=== PATIENT | female | born 1945 | race Caucasian/White ===

== ENCOUNTER → 2016-09-20 | Day surgery (SDC) | payer MEDICARE, OTHER ==
[~2016-09-20] VITALS: Ht 156.2 cm; Wt 76.0 kg
[~2016-09-20] MED LIST: *RESP: ALBUTEROL 2.5 MG/3 ML NEB (PRN) PERIprocedural Use ONLY NEB ONE; CALC1TAB87 PO; DO NOT ADM ANY ANTICOAGULANT DRUGS XX PRN; ENAL10TA PO; EPINEPHrine HCL (1:1000) 1 MG/ML VIAL ONE; FOLI1TAB4 PO; GABA600T PO; HYDR12.56 PO; INSULIN HUMAN REGULAR 1,000 UNITS/10 ML VIAL SQ PRN; LACTATED RINGER'S 1000 ML IV SCH; LIDOCAINE HCL 2% PF SOLN 10 ML VIAL ONE; MELA1TAB18 PO; METH2.5T PO; METOPROLOL TARTRATE 25 MG TAB PO PRN; MIDAZOLAM HCL 2 MG/2 ML VIAL ONE; NULE0.12 PO; OMEP20TA PO; OXYGENTANK NAS.CANULA; PERC5TAB12 PO; PRAV40TA2 PO; PROPOFOL 200 MG/20 ML AMP IV ONE; SODIUM CHLORID 0.9% 500 ML IV SCH; SODIUM CHLORIDE 0.9% 20 ML VIAL ONE; SUCR1S PO; VERA180T35 PO; VISICAP PO; ZOLO100T PO
[2016-09-20 06:01] VITALS: BP 150/68; PULSE 55; RESP 16; TEMP 98.2; O2SAT 96
[2016-09-20 06:25] LABS: APTT (PATIENT) 25.3 SEC (24.3-30.1); INTERNATIONAL NORMALIZED RATIO 0.9 RATIO; PROTHROMBIN TIME - PATIENT 10.3 SEC (9.8-11.6)
[2016-09-20 06:34] LABS: AUTOMATED NEUTROPHIL # 5.7 TH/MM3 (1.8-7.7); BASOPHIL # 0.2 TH/MM3 (0-0.2); BASOPHIL % 2.5 % (0.0-2.0); EOSINOPHIL # 0.2 TH/MM3 (0-0.4); EOSINOPHIL % 2.5 % (0.0-4.0); HEMATOCRIT 39.2 % (35.0-46.0); HEMO FLAGS DIFF FINAL; LYMPH % 26.8 % (9.0-44.0); LYMPHOCYTE # 2.5 TH/MM3 (1.0-4.8); MEAN CELL VOLUME 88.9 FL (80.0-100.0); MEAN CORPUSCULAR HEMOGLOBIN 28.3 PG (27.0-34.0); MEAN CORPUSCULAR HGB CONC 31.9 % (32.0-36.0); MONO % 7.5 % (0.0-8.0); NEUT % 60.7 % (16.0-70.0); PLATELET COUNT 260 TH/MM3 (150-450); RED BLOOD COUNT 4.41 MIL/MM3 (4.00-5.30); WHITE BLOOD COUNT 9.4 TH/MM3 (4.0-11.0)
[2016-09-20 09:42] VITALS: BP 169/68; PULSE 63; RESP 18; TEMP 97.7; O2SAT 92
--- NOTE | 2016-09-20 09:53 | MR ---
cc: OSVALDO RILEY M.D. DATE 09/20/2016 PROCEDURE Fiberoptic bronchoscopy flexible REASON FOR BRONCHOSCOPY Left lower lobe lung mass underlying malignancy suspect. PROCEDURE NOTE Fiberoptic bronchoscopy performed via LMA. Vocal cords intact. Trachea moderately hyperemic. Meghana sharp. Right mainstem bronchus, right upper, middle and lower lobes, left main bronchus, left upper and lower lobe inspected. Thick mucoid secretion and plugging noted both sides of the tracheobronchial tree. All plugs were removed. No endobronchial mass lesion identified. Washings sent for routine TB, fungal cultures from both sides of the tracheobronchial tree. Cytologic brushings left lower lobe obtained for cytological exam. The procedure well tolerated. The patient transferred to recovery in stable condition. IMPRESSION 1. Moderate to severe tracheobronchitis. 2. Excess mucoid secretion and plugging. 3. Samples obtained as above. 4. Procedure well tolerated. 5. The patient transferred to recovery in stable condition. Osvaldo Riley MD WWW/VAL /8:26 AM /9:35 AM
--- NOTE | 2016-09-20 09:53 | MR ---
cc: JUAN MARTINEZ M.D. DATE: 09/20/2016 PROCEDURE Fiberoptic bronchoscopy flexible. REASON FOR BRONCHOSCOPY Left lower lobe lung mass, rule out underlying malignancy. DETAILS OF PROCEDURE Fiberoptic bronchoscopy was performed via LMA. Vocal cords intact. Trachea diffusely hyperemic. Meghana sharp. Right main stem bronchus, right upper, middle and lower lobe, left main bronchus, left upper and lower lobes inspected. Diffuse hyperemia with thick mucoid whitish secretion and plugging noted. All plugs were removed. No endobronchial obstruction or mass lesion was identified. Washings obtained from both sides of the tracheobronchial tree for routine, TB, fungal cultures as well as cytological exam. Cytologic brushings left lower lobe obtained for cytological exam. Procedure well-tolerated. Patient transferred to Recovery in stable condition. IMPRESSION 1. Moderate to severe tracheobronchitis. 2. Excess mucoid secretion. 3. No endobronchial obstruction or mass lesion. 4. Samples obtained as above. 5. Procedure well-tolerated. 6. Patient transferred to Recovery in stable condition. MD RICARDO Olivera/LAVINIA /8:24 AM /9:34 AM
--- NOTE | 2016-09-20 14:52 | EKG ---
Date Performed: 09/20/2016 Time Performed: 06:13:34 PTAGE: 71 years EKG: SINUS BRADYCARDIA NONSPECIFIC T-WAVE ABNORMALITY BORDERLINE ECG NO PREVIOUS TRACING DOCTOR: Hannah Love Interpretating Date/Time 09/20/2016 14:51:19
== END | disposition home or self-care (01) ==
LOC: HEND 05:05
PROVIDERS: ATTEND Internal Medicine Sleep Medicine
DX: J40 Bronchitis, not specified as acute or chronic (principal); I10 Essential (primary) hypertension; J43.1 Panlobular emphysema
CPT/HCPCS: 00520; 31623; 85025; 85610; 85730; 87015; 87070; 87102; 87116; 87205; 87206; 88112; 88305; 93005; 94664; J2250; J7120; J7613; J0171

== ENCOUNTER 2016-10-17 10:58 | Inpatient (IN) | payer MEDICARE, OTHER ==
[~2016-10-17] VITALS: Ht 156.2 cm; Wt 76.4 kg
[~2016-10-17 10:58] MED LIST changes: -*RESP: ALBUTEROL 2.5 MG/3 ML NEB (PRN) PERIprocedural Use ONLY NEB ONE; -CALC1TAB87 PO; -DO NOT ADM ANY ANTICOAGULANT DRUGS XX PRN; -EPINEPHrine HCL (1:1000) 1 MG/ML VIAL ONE; -INSULIN HUMAN REGULAR 1,000 UNITS/10 ML VIAL SQ PRN; -LACTATED RINGER'S 1000 ML IV SCH; -LIDOCAINE HCL 2% PF SOLN 10 ML VIAL ONE; -METOPROLOL TARTRATE 25 MG TAB PO PRN; -MIDAZOLAM HCL 2 MG/2 ML VIAL ONE; -OXYGENTANK NAS.CANULA; -PROPOFOL 200 MG/20 ML AMP IV ONE; -SODIUM CHLORID 0.9% 500 ML IV SCH; -SODIUM CHLORIDE 0.9% 20 ML VIAL ONE; -SUCR1S PO; -VISICAP PO
[2016-10-22] MEDS ORDERED: VISICAP PO (13:58)
[2016-10-22] MEDS ORDERED: CALC1TAB87 PO (13:58)
[2016-10-28] VITALS (7 sets, daily range): BP systolic 101–164; BP diastolic 57–75; PULSE 69–90; RESP 15–20; TEMP 97.3–98; O2SAT 95–98
[2016-10-28] MEDS ORDERED: METOPROLOL TARTRATE 25 MG TAB PO PRN (06:15)
[2016-10-28] MEDS ORDERED: LACTATED RINGER'S 1000 ML IV PRN (06:15)
[2016-10-28] MEDS ORDERED: POVIDONE IODINE 5% (ANTISEPSIS KIT) 4 APPLICATIONS EACH NARE PRN (06:15)
[2016-10-28] MEDS ORDERED: CHLORHEXIDINE GLUCONATE 2 % 1 PACK (2 CLOTHS) TOPICAL PRN (06:15)
[2016-10-28] MEDS ORDERED: SODIUM CHLORID 0.9% 500 ML IV PRN (06:15)
[2016-10-28] MEDS ORDERED: INSULIN HUMAN REGULAR 1,000 UNITS/10 ML VIAL SQ PRN (06:15)
[2016-10-28] MEDS ORDERED: fentaNYL CITRATE 250 MCG/5 ML AMP ONE (06:47)
[2016-10-28] MEDS ORDERED: BUPIVACAINE LIPOSO PF 1.3% INJ 20 ML, DEXAMETHASONE INJ 4 MG, MORPHINE INJ 10 MG in SOD... P-ARTICULR SCH (07:15)
[2016-10-28] MEDS ORDERED: ceFAZolin 2 GM PREMIX 50 ML ONE (07:34)
[2016-10-28] MEDS ORDERED: ACETAMINOPHEN 1000 MG/100 ML VIAL IV ONE (07:34)
[2016-10-28] MEDS ORDERED: DEXAMETHASONE SOD PHOS 4 MG/ML VIAL ONE (07:34)
[2016-10-28] MEDS ORDERED: FAMOTIDINE 20 MG/2 ML VIAL ONE (07:34)
[2016-10-28] MEDS ORDERED: MIDAZOLAM HCL 2 MG/2 ML VIAL ONE (07:34)
[2016-10-28] MEDS ORDERED: HEPARIN SODIUM - SQ 10,000 UNITS/ML VIAL OTHER ONE (10:36)
[2016-10-28 10:52] LABS: BLOOD GAS BASE EXCESS -1.3 mmol/L (-2-2); BLOOD GAS CARBOXYHEMOGLOBIN 1.3 % (0-4); BLOOD GAS HCO3 23 mmol/L (22-26); BLOOD GAS METHEMOGLOBIN 1.4 % (0-2); BLOOD GAS O2 HGB SATURATION 94 % (90-100); BLOOD GAS OXYGEN CONTENT 16.6 Vol % (12.0-20.0); BLOOD GAS PCO2 43 mmHg (38-42); BLOOD GAS PO2 71 mmHg (61-120); BLOOD GAS TOTAL HGB 12.6 G/DL (12.0-16.0); CRITICAL VALUE NO; DRAW SITE ART LINE; OXYGEN DEVICE VENTILATOR; STAT YES; TEMP CORR TO 98.6
[2016-10-28] MEDS ORDERED: Post-op Orders (for Pharmacy) MISC OTHER ONE (11:30)
[2016-10-28] MEDS ORDERED: ACETAMINOPHEN 325 MG TAB PO PRN (11:30)
[2016-10-28] MEDS ORDERED: MAGNESIUM HYDROXIDE SUSP 30 ML CUP PO PRN (11:30)
[2016-10-28] MEDS ORDERED: MORPHINE SULFATE 30 MG/30 ML PCA IV SCH (11:30)
[2016-10-28] MEDS ORDERED: RESP: ALBUTEROL 2.5 MG/3 ML NEB (PRN) NEB (11:30)
[2016-10-28] MEDS ORDERED: ONDANSETRON HCL 4 MG/2 ML VIAL IV PUSH PRN (11:30)
[2016-10-28] MEDS ORDERED: SODIUM CHLORIDE 0.9% FLUSH 10 ML FLUSH IV FLUSH PRN (11:30)
[2016-10-28] MEDS ORDERED: NALOXONE HCL 0.4 MG/ML AMP IV PRN (11:30)
[2016-10-28] MEDS ORDERED: PHENYLEPH/NS 1000 MCG/10 ML SYR IV ONE (12:00)
[2016-10-28] MEDS ORDERED: LACTATED RINGER'S 1000 ML INJ 4,000 ML IV ONE (12:00)
[2016-10-28] MEDS ORDERED: PROPOFOL 200 MG/20 ML AMP IV ONE (12:00)
[2016-10-28] MEDS ORDERED: ONDANSETRON HCL 4 MG/2 ML VIAL IV PUSH ONE (12:00)
[2016-10-28] MEDS ORDERED: NEOSTIGMINE 3 MG/3 ML SYR IV ONE (12:00)
[2016-10-28] MEDS ORDERED: ePHEDrine/NS 25 MG/5 ML SYR IV ONE (12:00)
[2016-10-28 13:04] LABS: HEMATOCRIT 39.4 % (35.0-46.0); MEAN CELL VOLUME 85.2 FL (80.0-100.0); MEAN CORPUSCULAR HEMOGLOBIN 27.7 PG (27.0-34.0); MEAN CORPUSCULAR HGB CONC 32.5 % (32.0-36.0); PLATELET COUNT 170 TH/MM3 (150-450); RED BLOOD COUNT 4.63 MIL/MM3 (4.00-5.30); RED CELL DISTRIBUTION WIDTH 15.8 % (11.6-17.2); REVIEW FLAG FINAL
[2016-10-28] MEDS ORDERED: LACTATED RINGER'S 1000 ML INJ 1,000 ML IV SCH (13:30)
--- NOTE | 2016-10-28 13:47 | RADRPT ---
EXAM DATE/TIME: 10/28/2016 12:35 [facility] COMPARISON: No previous studies available for comparison. INDICATIONS : Post left lobectomy. MEDICAL HISTORY : None. SURGICAL HISTORY : None. ENCOUNTER: Initial ACUITY: 1 day PAIN SCORE: Non-responsive. LOCATION: chest FINDINGS: The cardiac silhouette is enlarged in transverse diameter. There is subsegmental atelectasis in the both bases. A left chest tube is in place. There is no evidence of pneumothorax. CONCLUSION: 1. Postsurgical changes as above. 2. There is no evidence of pneumothorax. Alphonso Deluna MD on October 28, 2016 at 13:41 Board Certified Radiologist. This report was verified electronically.
[2016-10-28] MEDS: KETOROLAC TROMETHAMINE 30 MG/ML (IVP) VIAL IV PUSH SCH ×2 (14:27→20:28)
[2016-10-28] MEDS: ACETAMINOPHEN 1000 MG/100 ML VIAL IV SCH ×2 (14:27→20:29)
--- NOTE | 2016-10-28 16:43 | PD.OP ---
cc: Radha Brown MD; Osvaldo Riley MD Operative Report Date of Surgery: Oct 28, 2016 Preoperative Diagnosis: Postoperative Diagnosis: Procedure: 1. Attempted Robotic Left Lower Lobectomy 2. Conversion to Left Muscle-sparing Posterolateral Thoracotomy 3. Repair of Pulmonary Artery 4. Mediastinal Lymph Node Dissection. 5. Intercostal Nerve Block . Surgeon: Radha Brown Patrol Sergeant(s): Jah Andrade Operation and Findings: PREOPERATIVE DIAGNOSIS 1. Left Lower Lobe Mass 2. COPD POSTOPERATIVE DIAGNOSIS same PROCEDURES 1. Attempted Robotic Left Lower Lobectomy 2. Conversion to Left Muscle-sparing Posterolateral Thoracotomy 3. Repair of Pulmonary Artery 4. Mediastinal Lymph Node Dissection. 5. Intercostal Nerve Block SURGEON Radha Brown MD PROGRAM DIRECTOR/TRAFFIC DIRECTOR YOUSUF Jewell ANESTHESIA General endotracheal. DIABETES PHYSICIAN TEOFILO Swanson MD OPERATIVE TIME Please see record. COMPLICATIONS None. INDICATION FOR PROCEDURE The patient is a 71 yo with left lower lobe mass suspicious for lung cancer. DESCRIPTION OF PROCEDURE The patient was brought to the operating suite and placed in supine position. Following satisfactory induction of general endotracheal anesthesia, the patient was placed in the right lateral decubitus position. The left chest was then prepped and draped in the usual sterile fashion. Under direct vision, camera was introduced in the 8th ICS and insufflation was begun into the chest . Instrument arm 1, 2, and 3 were placed. Lesion was identified. The inferior pulmonary ligament was divided. The pulmonary arterial supply to the lower lobe was identified, and dissected free as was the pulmonary venous supply. In the process of dissecting a station 11 lymph node off of the anterior surface of the basilar trunk of the lower lobe, the pulmonary artery was noted to be bleeding. Robotic attempts were unsuccessful in gaining adequate control of the vessel. The anterior arm was used to tamponade the bleeding and the robot was undocked. A muscle-sparing posterolateral thoracotomy was performed and the bleeding site gained control of with a vascular clamp. It was then repaired using a pledgeted 4-0 Prolene stitch. The lower lobe branches of the LPA were then divided sequentially as was the inferior pulmonary vein. The bronchus was then dissected free, clamped and the remaining lung was insufflated without any difficulty. he specimen was removed and sent for histological analysis. 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 Lymph node dissections of level 7, 9, 10 and 11 were performed along with the course of this removal. Some of these were retained with the specimen. A 28- [place]ar[place] chest tube was placed. Intercostal nerve block was performed at the level of the incision and 3 rib spaces above and below using Exparel with Decadron solution. Evicel was sprayed along the staple line and no air-leaks were identified. The pericostal space was approximated with interrupted #1 Vicryl sutures in a pericostal fashion. The serratus fascia and Latissimus dorsi were closed with running 0-Vicryl and the remaining wounds closed with 3-0 , and 4-0 Monocryl. The patient tolerated the procedure well and postoperatively went to recovery in stable condition. Radha Brown MD Oct 28, 2016 16:43
[2016-10-28] MEDS: RESP: ALBUTEROL 2.5 MG/3 ML NEB (SCH) NEB ×2 (18:12→22:30)
[2016-10-28] MEDS: PANTOPRAZOLE SOD 40 MG DELAYED RELEASE TAB PO SCH (20:28)
[2016-10-28] MEDS: SODIUM CHLORIDE 0.9% FLUSH 10 ML FLUSH IV FLUSH SCH (20:29)
[2016-10-28] MEDS: PCA - TOTAL MG MORPHINE DELIVERED PER SHIFT SCH (20:29)
[2016-10-28] MEDS ORDERED: DOCUSATE CALCIUM 240 MG CAP PO SCH (21:00)
[2016-10-29] VITALS (17 sets, daily range): BP systolic 110–166; BP diastolic 64–78; PULSE 82–102; RESP 14–16; TEMP 98–98.8; O2SAT 92–97
[2016-10-29] MEDS: KETOROLAC TROMETHAMINE 30 MG/ML (IVP) VIAL IV PUSH SCH ×2 (02:46→08:30)
[2016-10-29] MEDS: ACETAMINOPHEN 1000 MG/100 ML VIAL IV SCH ×2 (02:46→08:49)
[2016-10-29] MEDS: RESP: ALBUTEROL 2.5 MG/3 ML NEB (SCH) NEB ×2 (04:35→09:14)
[2016-10-29] MEDS: PCA - TOTAL MG MORPHINE DELIVERED PER SHIFT SCH (06:00)
[2016-10-29 06:19] LABS: AUTOMATED NEUTROPHIL # 16.7 TH/MM3 (1.8-7.7); BASOPHIL % 0.2 % (0.0-2.0); HEMATOCRIT 35.6 % (35.0-46.0); HEMO FLAGS DIFF FINAL; LYMPH % 6.6 % (9.0-44.0); LYMPHOCYTE # 1.3 TH/MM3 (1.0-4.8); MEAN CELL VOLUME 85.7 FL (80.0-100.0); MEAN CORPUSCULAR HEMOGLOBIN 28.3 PG (27.0-34.0); MONO % 7.7 % (0.0-8.0); NEUT % 85.5 % (16.0-70.0); PLATELET COUNT 170 TH/MM3 (150-450); RED BLOOD COUNT 4.15 MIL/MM3 (4.00-5.30); RED CELL DISTRIBUTION WIDTH 16.6 % (11.6-17.2); WHITE BLOOD COUNT 19.5 TH/MM3 (4.0-11.0)
--- NOTE | 2016-10-29 06:21 | RADRPT ---
EXAM DATE/TIME: 10/29/2016 05:27 [facility] COMPARISON: CHEST SINGLE AP, October 28, 2016, 12:35. INDICATIONS : Short of breath. MEDICAL HISTORY : None. SURGICAL HISTORY : left lobectomy. ENCOUNTER: Subsequent ACUITY: 2 days PAIN SCORE: Non-responsive. LOCATION: Bilateral chest FINDINGS: A single view of the chest demonstrates the left chest tube remains in place. The previous right lowe r lung atelectasis has resolved. No pneumothorax. The lungs remain grossly clear. The heart size is s table. There are no pleural effusions.. CONCLUSION: No evidence of pneumothorax. Stable examination the chest. Abilio Carlisle MD on October 29, 2016 at 6:18 Board Certified Radiologist. This report was verified electronically.
[2016-10-29 06:25] LABS: BICARBONATE 29.2 MEQ/L (21.0-32.0); POTASSIUM 4.2 MEQ/L (3.5-5.1)
[2016-10-29] MEDS: SODIUM CHLORIDE 0.9% FLUSH 10 ML FLUSH IV FLUSH SCH ×2 (09:00→21:00)
[2016-10-29] MEDS ORDERED: BISACODYL 10 MG SUPP RECTAL PRN (09:15)
[2016-10-29] MEDS ORDERED: GLUCAGON 1 MG/ML VIAL OTHER PRN (09:15)
[2016-10-29] MEDS ORDERED: SOD PHOSPHATE/SOD BIPHOSPHATE (ADULT) ENEMA 133ML RECTAL PRN (09:15)
[2016-10-29] MEDS ORDERED: DEXTROSE 50% IN WATER 50 ML VIAL(D50) IV PRN (09:15)
[2016-10-29] MEDS ORDERED: DOCUSATE SODIUM 100 MG CAP PO SCH (09:15)
[2016-10-29] MEDS: RESP: ALBUTEROL 2.5 MG/IPRATROPIUM 0.5 MG NEB (SCH) NEB ×2 (14:15→19:50)
[2016-10-29] MEDS: PRAVASTATIN SOD 40 MG TAB PO SCH (15:40)
[2016-10-29] MEDS: ACETAMINOPHEN/HYDROcodone 325 MG/5 MG TAB PO PRN ×3 (15:40→23:50)
--- NOTE | 2016-10-29 15:45 | PD.CAR.PN ---
CVT Progress Note CVT: POD #: 1 Subjective/Hospital Course: 71/ female hx of left lower lobe mass/ squamous cell ca PMH: depression, anxiety CVA minimal residual weakness surgery: .10/28 Attempted Robotic Left Lower Lobectomy, Conversion to Left Muscle-sparing Posterolateral Thoracotomy, Repair of Pulmonary Artery , Mediastinal Lymph Node Dissection. 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 HEAD: Normocephalic. EYES: No scleral icterus. No injection or drainage. NECK: Supple, trachea midline. No JVD or lymphadenopathy. CARDIOVASCULAR: Regular rate and rhythm without murmurs, gallops, or rubs. RESPIRATORY: Breath sounds equal bilaterally. No accessory muscle use. chest tube in place, incision intact and well approximate left chest GASTROINTESTINAL: Abdomen soft, non-tender, nondistended. MUSCULOSKELETAL: No cyanosis, or edema. BACK: Nontender without obvious deformity. No CVA tenderness. Vital Signs Date Time Temp Pulse Resp B/P Pulse Ox O2 Delivery O2 Flow Rate FiO2 10/29/16 14:11 93 10/29/16 13:00 98 10/29/16 11:00 98.5 91 14 137/70 95 10/29/16 11:00 95 Nasal Cannula 2.00 10/29/16 11:00 91 10/29/16 09:18 85 16 134/72 94 10/29/16 08:53 95 Nasal Cannula 2.00 10/29/16 07:00 98.4 82 16 135/70 95 10/29/16 07:00 95 Nasal Cannula 3.00 10/29/16 07:00 82 10/29/16 06:00 16 10/29/16 03:19 86 10/29/16 03:19 98.8 85 16 111/64 97 Arterial Line 10/29/16 03:19 97 Nasal Cannula 3.00 10/28/16 23:19 97.9 88 15 122/57 97 10/28/16 23:19 86 10/28/16 23:00 97 Nasal Cannula 3.00 10/28/16 22:31 98 Nasal Cannula 3.00 10/28/16 20:29 15 4/24/17 19:08 97.7 87 16 101/60 97 116/60 10/28/16 19:00 96 Nasal Cannula 3.00 10/28/16 19:00 87 10/28/16 18:04 97 Nasal Cannula 3.00 10/28/16 16:40 97.3 90 18 108/71 95 125/60 10/28/16 16:40 90 10/28/16 16:25 97.6 82 16 109/59 97 Nasal Cannula 3 111/52 10/28/16 16:00 84 16 107/58 97 Nasal Cannula 3 107/50 Labs: Laboratory Tests Test 10/29/16 05:43 White Blood Count 19.5 TH/MM3 (4.0-11.0) Red Blood Count 4.15 MIL/MM3 (4.00-5.30) Hemoglobin 11.7 GM/DL (11.6-15.3) Hematocrit 35.6 % (35.0-46.0) Mean Corpuscular Volume 85.7 FL (80.0-100.0) Mean Corpuscular Hemoglobin 28.3 PG (27.0-34.0) Mean Corpuscular Hemoglobin 33.0 % Concent (32.0-36.0) Red Cell Distribution Width 16.6 % (11.6-17.2) Platelet Count 170 TH/MM3 (150-450) Mean Platelet Volume 7.9 FL (7.0-11.0) Neutrophils (%) (Auto) 85.5 % (16.0-70.0) Lymphocytes (%) (Auto) 6.6 % (9.0-44.0) Monocytes (%) (Auto) 7.7 % (0.0-8.0) Eosinophils (%) (Auto) 0.0 % (0.0-4.0) Basophils (%) (Auto) 0.2 % (0.0-2.0) Neutrophils # (Auto) 16.7 TH/MM3 (1.8-7.7) Lymphocytes # (Auto) 1.3 TH/MM3 (1.0-4.8) Monocytes # (Auto) 1.5 TH/MM3 (0-0.9) Eosinophils # (Auto) 0.0 TH/MM3 (0-0.4) Basophils # (Auto) 0.0 TH/MM3 (0-0.2) CBC Comment DIFF FINAL Differential Comment Sodium Level 142 MEQ/L (136-145) Potassium Level 4.2 MEQ/L (3.5-5.1) Chloride Level 104 MEQ/L (98-107) Carbon Dioxide Level 29.2 MEQ/L (21.0-32.0) Anion Gap 9 MEQ/L (5-15) Blood Urea Nitrogen 22 MG/DL (7-18) Creatinine 1.25 MG/DL (0.50-1.00) Estimat Glomerular Filtration 42 ML/MIN (>89) Rate Random Glucose 138 MG/DL (74-106) Calcium Level 7.7 MG/DL (8.5-10.1) Result Diagram: 10/29/16 0543 10/29/16 0543 Telemetry: NSR (1) Lung cancer (2) left lower lobe lung mass Plan: await path (3) COPD (chronic obstructive pulmonary disease) Plan: nebs (4) Rheumatoid arthritis Plan: hold methotrexate dose today (5) S/P thoracotomy Plan: wean 02, nebsadriana acpaella OOB, PT CM eval for [facility] pain control Elzbieta Butt Oct 29, 2016 15:45
--- NOTE | 2016-10-29 15:47 | HHI.FF ---
Face to Face Verification Diagnosis: (1) Lung cancer (2) left lower lobe lung mass (3) S/P thoracotomy (4) COPD (chronic obstructive pulmonary disease) Home Health Nursing Order: Signs/symptoms of disease process Wound care and dressing changes Nursing assessment with vital signs Instructions: Incentive spirometry Q1 hr x 10, while awake, also use acapella device hourly whole awake chest wall Precautions: NO pushing or pulling, ( pt must use chest pillow to support chest with all activities and with coughing Daily incision care: ok to shower daily, no tub bath. Wash all incisions with liquid dial soap, clean wash cloth to each site, rinse and pat dry. Observe for any signs of infection, such as drainage which is dark yellow, rutherford, green or foul smelling. Immediately report to the surgeon any drainage from the chest incision, or legs, and for any abnormal drainage from the chest tube sites. Notify surgeon if any temp >101.5 degrees F. When specialty dressing removed/ or if you do not have one, continue to shower daily as above, then rinse and pat incision dry and paint with betadine daily x 5 days. Allow steri strips to fall off if you have any. Avoid lotions, creams, salves, oils, etc. for the first month F/U appointment: as per [facility] instructions: PCP in 2 weeks, CV surgeon 2 weeks, Slot Floor Supervisor 3-4 weeks For any questions regarding incisions/ dressing / meds / post op care or above Symptoms, Friday 8am-5pm Heart & Vascular Surgery Office ( Dr. Brown & Dr. Astorga), After Hours / Nights (5pm -8am) Weekends and Holidays Please call [facility] Card[facility] Unit ([facility]) Charge Nurse I have seen patient Sherley Neil on 10/29/16. My clinical findings support the need for the requested home health care services because: Patient has SOB Deconditioned w/ increased weakness I certify that my clinical findings support that this patient is homebound because: Post-op weakness Elzbieta Butt Oct 29, 2016 15:47
[2016-10-29] MEDS: GABAPENTIN 300 MG CAP PO SCH (20:11)
[2016-10-29] MEDS: DOCUSATE SODIUM 100 MG CAP PO SCH (20:11)
[2016-10-29] MEDS: PANTOPRAZOLE SOD 40 MG DELAYED RELEASE TAB PO SCH (20:11)
[2016-10-29] MEDS ORDERED: GABAPENTIN 300 MG CAP PO SCH (21:00)
[2016-10-29] MEDS: SENNOSIDES 8.6 MG TAB PO SCH (21:00)
[2016-10-30] VITALS (28 sets, daily range): BP systolic 141–181; BP diastolic 63–84; PULSE 65–123; RESP 18–22; TEMP 97.3–98.5; O2SAT 88–99
[2016-10-30] MEDS ORDERED: MORPHINE SULFATE 4 MG/ML INJ IV PUSH PRN (01:30)
[2016-10-30] MEDS ORDERED: ALPRAZolam 0.25 MG TAB PO PRN (01:30)
[2016-10-30] MEDS: VERAPAMIL HCL 180 MG SUSTAINED RELEASE TAB PO SCH ×3 (01:36→20:46)
[2016-10-30] MEDS: ACETAMINOPHEN/HYDROcodone 325 MG/5 MG TAB PO PRN ×2 (03:40→06:27)
--- NOTE | 2016-10-30 03:41 | RADRPT ---
EXAM DATE/TIME: 10/30/2016 02:56 [facility] COMPARISON: CHEST SINGLE AP, October 29, 2016, 5:27. INDICATIONS : Shortness of breath. MEDICAL HISTORY : None. SURGICAL HISTORY : left lobectomy ENCOUNTER: Subsequent ACUITY: 1 day PAIN SCORE: 6/10 LOCATION: Bilateral chest FINDINGS: The left chest tube remains in place. No pneumothorax. There does appear to be some increasing atelec tasis in the left lung compared to the prior exam. The right lung remains clear. No definite pleural effusions. The heart size is stable. CONCLUSION: 1. No pneumothorax. 2. Increasing atelectasis of the left lung compared to the prior exam. Abilio Carlisle MD on October 30, 2016 at 3:39 Board Certified Radiologist. This report was verified electronically.
[2016-10-30 06:19] LABS: AUTOMATED NEUTROPHIL # 13.7 TH/MM3 (1.8-7.7); BASOPHIL # 0.1 TH/MM3 (0-0.2); BASOPHIL % 0.5 % (0.0-2.0); EOSINOPHIL # 0.1 TH/MM3 (0-0.4); EOSINOPHIL % 0.4 % (0.0-4.0); HEMATOCRIT 31.1 % (35.0-46.0); HEMO FLAGS DIFF FINAL; LYMPH % 9.9 % (9.0-44.0); LYMPHOCYTE # 1.7 TH/MM3 (1.0-4.8); MEAN CORPUSCULAR HEMOGLOBIN 29.1 PG (27.0-34.0); MEAN CORPUSCULAR HGB CONC 33.5 % (32.0-36.0); NEUT % 81.2 % (16.0-70.0); PLATELET COUNT 181 TH/MM3 (150-450); RED BLOOD COUNT 3.57 MIL/MM3 (4.00-5.30); RED CELL DISTRIBUTION WIDTH 16.2 % (11.6-17.2); WHITE BLOOD COUNT 16.8 TH/MM3 (4.0-11.0)
[2016-10-30 06:50] LABS: BICARBONATE 33.7 MEQ/L (21.0-32.0); MAGNESIUM 1.9 MG/DL (1.5-2.5); POTASSIUM 3.9 MEQ/L (3.5-5.1)
[2016-10-30] MEDS ORDERED: MELATONIN 5 MG TAB PO PRN (07:15)
[2016-10-30] MEDS: RESP: ALBUTEROL 2.5 MG/IPRATROPIUM 0.5 MG NEB (SCH) NEB ×3 (08:19→19:23)
[2016-10-30] MEDS ORDERED: POTASSIUM CHLORIDE 20 MEQ CONTROLLED RELEASE TAB PO ONE (09:00)
[2016-10-30] MEDS ORDERED: MAGNESIUM SULFATE 1 GM PREMIX 100 ML IV ONE (09:00)
[2016-10-30] MEDS ORDERED: SERTRALINE HCL 100 MG TAB PO SCH (09:00)
[2016-10-30] MEDS: POLYETHYLENE GLYCOL 17 GM PKG PO SCH (09:12)
[2016-10-30] MEDS: DOCUSATE SODIUM 100 MG CAP PO SCH ×2 (09:12→20:50)
[2016-10-30] MEDS: PRAVASTATIN SOD 40 MG TAB PO SCH (09:12)
[2016-10-30] MEDS: GABAPENTIN 300 MG CAP PO SCH ×2 (09:12→20:47)
[2016-10-30] MEDS: MAGNESIUM HYDROXIDE SUSP 30 ML CUP PO SCH (09:12)
[2016-10-30] MEDS: HYDROCHLOROTHIAZIDE 12.5 MG CAP PO SCH (09:12)
[2016-10-30] MEDS: MULTIVITAMINS/MINERALS THERAPEUTIC TAB PO SCH (09:12)
[2016-10-30] MEDS: SODIUM CHLORIDE 0.9% FLUSH 10 ML FLUSH IV FLUSH SCH ×2 (09:13→20:50)
--- NOTE | 2016-10-30 11:56 | PD.CAR.PN ---
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 anxious , on nasal cannula po pain control OOB ambulate , chest tube drained 112cc/ 12 hrs transfer to stepdown unit 10/30 chest drained 220cc/ 12 hrs, additional 100cc sero sang drainage since this am remains on 02 at 3 liters encourage ambulation, consult for pt home meds resumed for hypertension gentle diuresis Objective: Vital Signs Date Time Temp Pulse Resp B/P Pulse Ox O2 Delivery O2 Flow Rate FiO2 10/30/16 09:00 96 10/30/16 08:19 93 Nasal Cannula 4.00 10/30/16 08:00 108 10/30/16 07:00 80 10/30/16 07:00 98.0 85 18 145/68 91 10/30/16 07:00 4.00 10/30/16 06:10 82 10/30/16 06:00 85 10/30/16 05:07 85 10/30/16 04:00 93 10/30/16 03:50 98.0 93 20 169/80 97 10/30/16 03:04 94 Nasal Cannula 3.00 10/30/16 03:00 93 10/30/16 02:00 99 10/30/16 01:00 99 10/30/16 00:00 101 10/30/16 00:00 98.4 99 22 181/84 94 10/29/16 23:05 101 10/29/16 23:01 94 Nasal Cannula 3.00 10/29/16 22:00 101 10/29/16 21:00 99 10/29/16 20:16 78 Nasal Cannula 2.00 10/29/16 20:00 98 10/29/16 20:00 98.0 96 16 166/78 92 10/29/16 19:50 93 Nasal Cannula 2.00 10/29/16 19:00 96 10/29/16 18:00 98 10/29/16 17:00 102 10/29/16 16:00 90 10/29/16 15:00 98.5 94 16 110/64 97 10/29/16 15:00 97 Nasal Cannula 2.00 10/29/16 15:00 102 10/29/16 14:11 93 10/29/16 13:00 98 Labs: Laboratory Tests Test 10/30/16 05:25 White Blood Count 16.8 TH/MM3 (4.0-11.0) Red Blood Count 3.57 MIL/MM3 (4.00-5.30) Hemoglobin 10.4 GM/DL (11.6-15.3) Hematocrit 31.1 % (35.0-46.0) Mean Corpuscular Volume 87.0 FL (80.0-100.0) Mean Corpuscular Hemoglobin 29.1 PG (27.0-34.0) Mean Corpuscular Hemoglobin 33.5 % Concent (32.0-36.0) Red Cell Distribution Width 16.2 % (11.6-17.2) Platelet Count 181 TH/MM3 (150-450) Mean Platelet Volume 7.6 FL (7.0-11.0) Neutrophils (%) (Auto) 81.2 % (16.0-70.0) Lymphocytes (%) (Auto) 9.9 % (9.0-44.0) Monocytes (%) (Auto) 8.0 % (0.0-8.0) Eosinophils (%) (Auto) 0.4 % (0.0-4.0) Basophils (%) (Auto) 0.5 % (0.0-2.0) Neutrophils # (Auto) 13.7 TH/MM3 (1.8-7.7) Lymphocytes # (Auto) 1.7 TH/MM3 (1.0-4.8) Monocytes # (Auto) 1.3 TH/MM3 (0-0.9) Eosinophils # (Auto) 0.1 TH/MM3 (0-0.4) Basophils # (Auto) 0.1 TH/MM3 (0-0.2) CBC Comment DIFF FINAL Differential Comment Sodium Level 142 MEQ/L (136-145) Potassium Level 3.9 MEQ/L (3.5-5.1) Chloride Level 103 MEQ/L (98-107) Carbon Dioxide Level 33.7 MEQ/L (21.0-32.0) Anion Gap 5 MEQ/L (5-15) Blood Urea Nitrogen 19 MG/DL (7-18) Creatinine 0.69 MG/DL (0.50-1.00) Estimat Glomerular Filtration 83 ML/MIN (>89) Rate Random Glucose 100 MG/DL (74-106) Calcium Level 8.5 MG/DL (8.5-10.1) Magnesium Level 1.9 MG/DL (1.5-2.5) Result Diagram: 10/30/1652410/30/16524 Telemetry: NSR (1) Lung cancer (2) left lower lobe lung mass Plan: await path / preliminary invasive squamous cell CA/ await complete path (3) COPD (chronic obstructive pulmonary disease) Plan: nebs (4) Rheumatoid arthritis Plan: hold methotrexate dose today (5) S/P thoracotomy Plan: wean 02, nebs, ezpap , acpaella OOB, PT CM eval for [facility] pain control (6) Anxiety Plan: prn xanax (7) Hypertension Plan: resume home meds / gentle diuresis Elzbieta Butt Oct 30, 2016 11:56
[2016-10-30] MEDS ORDERED: FUROSEMIDE 40 MG/4 ML VIAL IV PUSH ONE (12:00)
[2016-10-30] MEDS ORDERED: POTASSIUM CHLORIDE 10 MEQ CONTROLLED RELEASE TAB PO ONE (12:00)
[2016-10-30] MEDS ORDERED: POTASSIUM CHLORIDE 10 MEQ CAP PO ONE (14:00)
[2016-10-30] MEDS: SENNOSIDES 8.6 MG TAB PO SCH (20:46)
[2016-10-30] MEDS: PANTOPRAZOLE SOD 40 MG DELAYED RELEASE TAB PO SCH (20:46)
[2016-10-30] MEDS: SERTRALINE HCL 50 MG TAB PO SCH (20:50)
[2016-10-31] VITALS (31 sets, daily range): BP systolic 124–156; BP diastolic 65–81; PULSE 70–112; RESP 16–18; TEMP 89–98.3; O2SAT 90–96
[2016-10-31] MEDS: ACETAMINOPHEN/HYDROcodone 325 MG/5 MG TAB PO PRN ×3 (04:13→21:16)
--- NOTE | 2016-10-31 04:39 | RADRPT ---
EXAM DATE/TIME: 10/31/2016 03:35 [facility] COMPARISON: CHEST SINGLE AP, October 30, 2016, 2:56. INDICATIONS : Shortness of breath MEDICAL HISTORY : None. SURGICAL HISTORY : Left lobectomy ENCOUNTER: Subsequent ACUITY: 3 days PAIN SCORE: 0/10 LOCATION: Left chest FINDINGS: Left chest tube remains in place. There is a tiny left apical pneumothorax with 4 mm of separation. T here is improved aeration of the left lower lung compared to the prior exam. The right lung remains g rossly clear. No pleural effusions. Heart size is stable. CONCLUSION: 1. Tiny left apical pneumothorax with 4 mm of separation 2. Improving aeration of the left lower lung compared to the prior study. Abilio Carlisle MD on October 31, 2016 at 4:37 Board Certified Radiologist. This report was verified electronically.
[2016-10-31] MEDS: RESP: ALBUTEROL 2.5 MG/IPRATROPIUM 0.5 MG NEB (SCH) NEB ×3 (07:37→20:20)
[2016-10-31] MEDS: DOCUSATE SODIUM 100 MG CAP PO SCH ×2 (08:01→21:15)
[2016-10-31] MEDS: POLYETHYLENE GLYCOL 17 GM PKG PO SCH (08:01)
[2016-10-31] MEDS: SODIUM CHLORIDE 0.9% FLUSH 10 ML FLUSH IV FLUSH SCH ×2 (08:02→21:26)
[2016-10-31] MEDS: HYDROCHLOROTHIAZIDE 12.5 MG CAP PO SCH (08:02)
[2016-10-31] MEDS: GABAPENTIN 300 MG CAP PO SCH ×2 (08:02→21:15)
[2016-10-31] MEDS: MAGNESIUM HYDROXIDE SUSP 30 ML CUP PO SCH (08:02)
[2016-10-31] MEDS: VERAPAMIL HCL 180 MG SUSTAINED RELEASE TAB PO SCH ×2 (08:02→21:15)
[2016-10-31] MEDS: MULTIVITAMINS/MINERALS THERAPEUTIC TAB PO SCH (08:02)
[2016-10-31] MEDS: SERTRALINE HCL 50 MG TAB PO SCH (08:02)
[2016-10-31] MEDS: PRAVASTATIN SOD 40 MG TAB PO SCH (08:02)
--- NOTE | 2016-10-31 10:37 | RADRPT ---
EXAM DATE/TIME: 10/31/2016 09:55 [facility] COMPARISON: CHEST SINGLE AP, October 31, 2016, 3:35. INDICATIONS : Sudden onset of shortness of breath. MEDICAL HISTORY : Carcinoma, lung. CVA. Rheumatoid arthritis. SURGICAL HISTORY : Hysterectomy. Cholecystectomy. Left lower lobectomy. Thoractomy. ENCOUNTER: Subsequent ACUITY: 3 days PAIN SCORE: 2/10 LOCATION: Bilateral chest FINDINGS: Portable AP view of the chest demonstrates normal-sized cardiac silhouette with calcification of the aorta and leftward shift of the mediastinum. Large bore left chest tube remains present and there is a small left pneumothorax, slightly larger than on the prior study. There is airspace opacity in the left mid and lower lung zone with stable elevation of the left hemidiaphragm. Right lung demonstrates no abnormality. CONCLUSION: 1. Left chest tube remains present with a small pneumothorax remains. It is slightly larger than the prior study. 2. Persistent left mid and lower lung zone airspace opacity. Terrence Garvey MD on October 31, 2016 at 10:34 Board Certified Radiologist. This report was verified electronically.
--- NOTE | 2016-10-31 10:59 | PD.CAR.PN ---
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 , on nasal cannula po pain control OOB ambulate , chest tube drained 112cc/ 12 hrs transfer to stepdown unit 10/30 chest drained 220cc/ 12 hrs, additional 100cc sero sang drainage since this am remains on 02 at 3 liters encourage ambulation, consult for pt home meds resumed for hypertension gentle diuresis 10/31 pt had episode of epigastric pain after eating, became SOB, changed to venti mask , 2/ sat 88% improved to 93% "states she has been having difficulty and pain epigastric area since her surgery will check ECG, consult speech therapy and GI for dysphagia has small timy left apical ptx, no air leak noted eval for chest tube removal Objective: GENERAL: SKIN: Warm and dry. incisions intact and well approximated left chest area HEAD: Normocephalic. EYES: No scleral icterus. No injection or drainage. NECK: Supple, trachea midline. No JVD or lymphadenopathy. CARDIOVASCULAR: Regular rate and rhythm without murmurs, gallops, or rubs. RESPIRATORY: diminished in bases Breath sounds equal bilaterally. chest tube to wall suction, drained 170cc/ 12 hrs , no air leak GASTROINTESTINAL: Abdomen soft, non-tender, nondistended. MUSCULOSKELETAL: No cyanosis, or edema. BACK: Nontender without obvious deformity. No CVA tenderness. Vital Signs Date Time Temp Pulse Resp B/P Pulse Ox O2 Delivery O2 Flow Rate FiO2 10/31/16 10:32 82 10/31/16 09:53 80 10/31/16 09:37 93 Venturi Mask 6.00 50 10/31/16 08:11 98.3 83 18 146/72 91 10/31/16 08:07 83 10/31/16 07:49 89 10/31/16 07:00 91 Nasal Cannula 4.00 10/31/16 06:01 74 10/31/16 05:01 100 10/31/16 04:01 94 10/31/16 03:01 10/31/16 03:01 94 10/31/16 03:01 Nasal Cannula 4.00 10/31/16 03:01 98.3 92 18 156/81 95 10/31/16 02:01 96 10/31/16 01:03 92 10/31/16 00:01 89 10/30/16 23:38 99 Nasal Cannula 4.00 10/30/16 23:38 98.5 91 20 149/73 88 10/30/16 23:38 91 10/30/16 22:01 92 10/30/16 21:01 94 10/30/16 20:01 92 10/30/16 19:24 92 Nasal Cannula 4.00 10/30/16 19:01 99 Nasal Cannula 4.00 10/30/16 19:01 91 10/30/16 19:01 97.3 91 20 155/72 99 10/30/16 18:00 91 10/30/16 17:00 95 10/30/16 16:00 91 10/30/16 15:00 123 20 141/84 89 10/30/16 15:00 123 10/30/16 15:00 4.00 10/30/16 14:00 92 10/30/16 13:00 65 10/30/16 12:00 4.00 10/30/16 12:00 88 10/30/16 11:00 82 10/30/16 11:00 97.9 86 18 142/63 93 Result Diagram: 10/30/16 0525 10/30/16 0525 Telemetry: NSR (1) Lung cancer (2) left lower lobe lung mass Plan: await path / preliminary invasive squamous cell CA/ [id number] histology: moderately differentiated grade 2 squamous cell ca lymph node involvement (3) COPD (chronic obstructive pulmonary disease) Plan: nebs (4) Rheumatoid arthritis Plan: hold methotrexate dose today (5) S/P thoracotomy Plan: wean 02, nebs, ezpap , acpaella OOB, PT CM eval for [facility] pain control (6) Anxiety Plan: prn xanax (7) Hypertension Plan: resume home meds / (8) Hypoxemia Plan: 02 to maintain sat > 92% (9) Dysphagia Plan: GI consult speech consult Elzbieta Butt Oct 31, 2016 10:59
[2016-10-31] MEDS ORDERED: POTASSIUM CHLORIDE 20 MEQ CONTROLLED RELEASE TAB PO ONE (14:00)
[2016-10-31] MEDS ORDERED: RESP: ALBUTEROL 2.5 MG/IPRATROPIUM 0.5 MG NEB (PRN) NEB (14:00)
[2016-10-31] MEDS ORDERED: FUROSEMIDE 20 MG/2 ML VIAL IV PUSH ONE (14:00)
--- NOTE | 2016-10-31 17:00 | PD.CONS ---
HPI History of Present Illness This is a 71 year old female patient who underwent attempted robotic left lower lobectomy with conversion to left muscle sparing posterolateral thoracotomy, repair of pulmonary artery, mediastinal lymph node dissection, intercostal nerve block for left lower lobe mass on 10/28/[address] Brown. Since her surgery, she has been having epigastric pain, nausea, dyspepsia, bloating, and frequent belching. She states that she has had dyspepsia for many years. She took Pepcid AC for quite some time and reports that this initially did help, but that after awhile, it no longer seemed to help. She went to her PCP and was started on omeprazole. She states that this has been helping, although she would still sometimes get some breakthrough symptoms. Since she had her surgery , she reports that she has had moderate epigastric pain that is intermittent. She is not really able to describe the pain but states that she feels if she could belch, she would feel better. She reports that her symptoms are aggravated by po intact. She became extremely nauseous after eating breakfast this am, toast and eggs. She did not actually vomit. She does feel that she will occasionally have solid foods get caught in her lower esophagus. She last had an EGD/Colonoscopy about 2-3 years ago. She does not recall who did this. She denies any hx of PUD. She currently has a chest tube and her O2 sats are 92 % on 5L via n/c. She has shortness of breath with minimal exertion. She does have a hx of rheumatoid arthritis and takes methotrexate at home. (Emani Means) PFSH Past Medical History HTN COPD Lung Mass Allergic rhinitis GERD Hyperlipidemia HTN Insomnia EVELINA Rheumatoid arthritis Past Surgical History Cataract surgery EGD/Colonoscopy Cholecystectomy (Emani Means) Coded Allergies: Tramadol (Verified Allergy, Unknown, ELEVATED BLOOD PRESSURE, 10/28/16) Codeine (Verified Adverse Reaction, Severe, DIZZY NAUSEA VOMIT, 10/28/16) Wellbutrin (Verified Adverse Reaction, Severe, ELEVATED BLOOD PRESSURE, ) Medications Allergies Coded Allergies Type Severity Reaction Last Updated Verified Tramadol Allergy Unknown ELEVATED BLOOD PRESSURE 10/28/16 Yes Codeine Adverse Reaction Severe DIZZY NAUSEA VOMIT 10/28/16 Yes Wellbutrin Adverse Reaction Severe ELEVATED BLOOD PRESSURE 10/28/16 Yes Active Scripts Medications Dose Route/Sig Days Date Category Calcium 600 with Vitamin D (Calcium Carbonate-Cholecalciferol) 600-400 mg-Unit Tab 1 Tab PO DAILY 10/22/16 Reported Vision Plus (Multiple Vitamins W/ Minerals) 1 Cap 1 Cap PO DAILY 10/22/16 Reported Percocet (Oxycodone-Acetaminophen) 5-325 mg Tab 1 Tab PO BID PRN 09/20/16 Reported Omeprazole 20 Mg Tab 20 Mg PO DAILY 09/20/16 Reported Methotrexate 2.5 Mg Tab 2.5 Mg PO Friday09/20/16 Reported Folate (Folic Acid) 1 Mg Tab 1 Mg PO S,M,W,TH,FR,SA 09/20/16 Reported Nulev (Hyoscyamine Sulfate) 0.125 Mg Tab 1 Tab PO DAILY PRN 09/20/16 Reported Melatonin 10 Mg Tab 10 Mg PO HS PRN 09/20/16 Reported Gabapentin 600 Mg Tab 600 Mg PO BID 09/20/16 Reported Zoloft (Sertraline HCl) 100 Mg Tab 100 Mg PO DAILY 09/20/16 Reported Pravastatin 40 Mg Tab 40 Mg PO DAILY 09/20/16 Reported Hydrochlorothiazide 12.5 Mg Tab 12.5 Mg PO DAILY 09/20/16 Reported Enalapril (Enalapril Maleate) 10 Mg Tab 10 Mg PO BID 09/20/16 Reported Verapamil SR (Verapamil HCl) 180 Mg Tab 180 Mg PO BID 09/20/16 Reported Family History Sister from COPD Another sister with cystic kidney disease Brother from heart disease Mother with hx of heart disease Father at age 47- unknown causes Social History 50 pack year smoking hx, recently quit No ETOH (Emani Means) Review of Systems Constitutional: COMPLAINS OF: Fatigue Respiratory: COMPLAINS OF: Cough, Sputum production, Shortness of breath Cardiovascular: DENIES: Chest pain Gastrointestinal: COMPLAINS OF: Abdominal pain, Nausea, Swelling of Abdomen, Heartburn, DENIES: Black stools, Bloody stools, Constipation, Diarrhea, Vomiting Musculoskeletal: COMPLAINS OF: Back pain Hematologic/lymphatic: COMPLAINS OF: Bruising Neurologic: COMPLAINS OF: Headache Psychiatric: DENIES: Confusion (Emani Means) GI Exam Vitals I&O Vital Signs Date Time Temp Pulse Resp B/P Pulse Ox O2 Delivery O2 Flow Rate FiO2 4/27/17 16:27 76 10/31/16 15:00 97.9 84 16 124/66 90 10/31/16 15:00 91 Nasal Cannula 4.00 10/31/16 15:00 72 10/31/16 14:05 76 10/31/16 13:02 75 10/31/16 12:08 70 10/31/16 11:28 82 10/31/16 11:20 95 Partial Rebreather 15.00 10/31/16 11:17 97.9 84 16 124/66 90 10/31/16 11:09 91 Simple Mask 6.00 10/31/16 10:32 82 10/31/16 09:53 80 10/31/16 09:37 93 Venturi Mask 6.00 50 10/31/16 08:11 98.3 83 18 146/72 91 10/31/16 08:07 83 10/31/16 07:49 89 10/31/16 07:00 91 Nasal Cannula 4.00 10/31/16 06:01 74 10/31/16 05:01 100 10/31/16 04:01 94 10/31/16 03:01 10/31/16 03:01 94 10/31/16 03:01 Nasal Cannula 4.00 10/31/16 03:01 98.3 92 18 156/81 95 10/31/16 02:01 96 10/31/16 01:03 92 10/31/16 00:01 89 10/30/16 23:38 99 Nasal Cannula 4.00 10/30/16 23:38 98.5 91 20 149/73 88 10/30/16 23:38 91 10/30/16 22:01 92 10/30/16 21:01 94 10/30/16 20:01 92 10/30/16 19:24 92 Nasal Cannula 4.00 10/30/16 19:01 99 Nasal Cannula 4.00 10/30/16 19:01 91 10/30/16 19:01 97.3 91 20 155/72 99 10/30/16 18:00 91 10/30/16 17:00 95 I/O 10/30/16 10/30/16 10/30/16 10/31/16 10/31/16 10/31/16 07:00 15:00 23:00 07:00 15:00 23:00 Intake Total 460 ml 1100 ml 315 ml Output Total 820 ml 1750 ml 1090 ml Balance -360 ml -650 ml -775 ml Intake Oral 460 ml 900 ml 315 ml IV Total 200 ml Output Urine Total 600 ml 1500 ml 750 ml Stool Total 0 ml Chest Tube Drainage Total 220 ml 250 ml 340 ml # Bowel Movements 0 Imaging Last Impressions Chest X-Ray 10/31/16 0500 Signed Impressions: Service Date/Time: October 03:35 - CONCLUSION: 1. Tiny left apical pneumothorax with 4 mm of separation 2. Improving aeration of the left lower lung compared to the prior study. Abilio Carlisle MD Physical Examination HEENT: Normocephalic; atraumatic; no jaundice. CHEST: Resp shallow/even. O2 5L, O2 sat 92%, Left drsg d/i, Left CT with serosanguineous drainage CARDIAC: RRR ABDOMEN: Soft, mildly bloated, diffuse tenderness; no hepatosplenomegaly; bowel sounds are present in all four quadrants. EXTREMITIES: Mild edema. SKIN: Ecchymosis lue MEDICAL INSURANCE CODING SPECIALIST: No focal deficits; alert and oriented times three. (Emani Means) Assessment and Plan Plan ASSESSMENT: - Epigastric pain, nausea, bloating. Pt with long hx of GERD/Dyspepsia- has been controlled with omeprazole at home. She is getting Protonix 40mg at hs here. She states that since her surgery, she has been having increased epigastric pain, nausea, bloating associated with po intake. She last had an EGD/Colonoscopy 3 years ago. She denies any PUD. Of note, she had recent surgery and is on O2 5L via n/c and sats are 92%. She has sob with minimal exertion. She is getting protonix 40mg po daily here, but getting it at hour sleep. We will increase Protonix to BID dosing, Add Carafate. Get KUB to rule out constipation/ileus that may be contributing to her symptoms. Consider Upper GI series/barium swallow based on how she does, KUB results. - Dysphagia, occasional solids getting caught in lower esophagus- very mild, chronic. Not currently having. PPI - GERD. PPI - Leukocytosis, WBC 16.8. - LLL Mass. S/P attempted robotic left lower lobectomy with conversion to left muscle sparing posterolateral thoracotomy, repair of pulmonary artery, mediastinal lymph node dissection, intercostal nerve block for left lower lobe mass on 10/28/[address] Brown. She currently has a chest tube and her O2 sats are 92% on 5L via n/c. She has shortness of breath with minimal exertion. - HTN, COPD, Allergic rhinitis, Hyperlipidemia, HTN, Insomnia, EVELINA, Rheumatoid arthritis. Per primary PLAN: - INES - Increase Protonix to 40mg iv BID - Add Carafate - KUB - Cont. Bowel regimen- miralax, senokot, colace - Consider barium swallow/upper GI series based on results of above - Consider EGD +/- Dilatations once she is stable from pulmonary standpoint - Supportive care - Further recommendations to follow based on results of above - Pt seen and examined by Dr. Enriquez and myself and this note is written on his behalf (Emani Means) Physician Comments Seen and examined Agree with above Continue with current supportive care Monitor labs Endoscopy once patient is more stable (Isreal Enriquez MD) Emani Means Oct 31, 2016 17:00 Isreal Enriquez MD Oct 31, 2016 21:39
--- NOTE | 2016-10-31 17:33 | RADRPT ---
EXAM DATE/TIME: 10/31/2016 17:03 [facility] COMPARISON: No previous studies available for comparison. INDICATIONS : Rule out ileus, pain in abdomen. MEDICAL HISTORY : None. SURGICAL HISTORY : None. ENCOUNTER: Initial ACUITY: 1 day PAIN SCORE: 0/10 LOCATION: Bilateral abdomen FINDINGS: A single AP supine portable view the chest was obtained and demonstrates gas and stool noted segments within the colon. There are several loops of nondilated air containing small bowel. There is no evid ence of free air on this limited supine study. Bony structures are intact. There are overlying leads present. CONCLUSION: Mildly nonspecific, nonobstructive bowel gas pattern. Aidan Leal MD on October 31, 2016 at 17:29 Board Certified Radiologist. This report was verified electronically.
[2016-10-31] MEDS: PANTOPRAZOLE SODIUM 40 MG VIAL IV PUSH SCH (18:08)
--- NOTE | 2016-10-31 19:55 | EKG ---
Date Performed: 10/31/2016 Time Performed: 18:30:38 PTAGE: 71 years EKG: Sinus rhythm . --- Suspect arm lead reversal - only aVF, V1-V6 analyzed --- Possible left atrial abnormality Septa l ST-T changes are nonspecific Borderline ECG Would repeat electrocardiogram due to erroneous limb le ad placement. PREVIOUS TRACING : 10/22/2016 14.30 DOCTOR: Lance Escalona Interpretating Date/Time 10/31/2016 19:54:12
[2016-10-31] MEDS: SUCRALFATE 1 GM/10 ML CUP PO SCH (21:15)
[2016-10-31] MEDS: SENNOSIDES 8.6 MG TAB PO SCH (21:15)
[2016-11-01] VITALS (32 sets, daily range): BP systolic 130–169; BP diastolic 60–88; PULSE 75–102; RESP 17–20; TEMP 98.1–98.8; O2SAT 93–97
[2016-11-01] MEDS: ACETAMINOPHEN/HYDROcodone 325 MG/5 MG TAB PO PRN ×3 (00:23→20:36)
[2016-11-01] MEDS: PANTOPRAZOLE SODIUM 40 MG VIAL IV PUSH SCH ×2 (05:55→16:36)
[2016-11-01] MEDS: SUCRALFATE 1 GM/10 ML CUP PO SCH ×4 (06:02→20:37)
[2016-11-01 07:02] LABS: AUTOMATED NEUTROPHIL # 12.1 TH/MM3 (1.8-7.7); BASOPHIL # 0.1 TH/MM3 (0-0.2); BASOPHIL % 0.4 % (0.0-2.0); EOSINOPHIL # 0.3 TH/MM3 (0-0.4); EOSINOPHIL % 2.1 % (0.0-4.0); HEMATOCRIT 31.1 % (35.0-46.0); LYMPH % 11.8 % (9.0-44.0); LYMPHOCYTE # 1.9 TH/MM3 (1.0-4.8); MEAN CELL VOLUME 86.9 FL (80.0-100.0); MEAN CORPUSCULAR HEMOGLOBIN 28.6 PG (27.0-34.0); MEAN CORPUSCULAR HGB CONC 32.9 % (32.0-36.0); MONO % 8.4 % (0.0-8.0); NEUT % 77.3 % (16.0-70.0); PLATELET COUNT 276 TH/MM3 (150-450); RED BLOOD COUNT 3.57 MIL/MM3 (4.00-5.30); RED CELL DISTRIBUTION WIDTH 15.6 % (11.6-17.2); WHITE BLOOD COUNT 15.7 TH/MM3 (4.0-11.0)
[2016-11-01 07:10] LABS: HEMO FLAGS AUTO DIFF
[2016-11-01] MEDS: RESP: ALBUTEROL 2.5 MG/IPRATROPIUM 0.5 MG NEB (SCH) NEB ×3 (07:42→19:40)
[2016-11-01 07:50] LABS: BICARBONATE 33.7 MEQ/L (21.0-32.0); MAGNESIUM 2.2 MG/DL (1.5-2.5); POTASSIUM 3.5 MEQ/L (3.5-5.1)
[2016-11-01 08:12] LABS: BASOPHILS 1 % (0-2); CORRECTED NUCLEATED RBC 1 /100 WBC (0-0); EOSINOPHILS 3 % (0-4); METAMYELOCYTES 1 % (0-1); MYELOCYTES 1 % (0-0); NEUTROPHIL # MANUAL DIFF 12.9 TH/MM3 (1.8-7.7); PLATELET ESTIMATE SMEAR NORMAL (NORMAL); PLATELET MORPHOLOGY NORMAL (NORMAL); POLYS (SEG NEUTROPHILS) 80 % (16-70); SCAN/DIFF FINAL DIFF MANUAL; WBC DIFF SAMPLE 100
[2016-11-01] MEDS: MAGNESIUM HYDROXIDE SUSP 30 ML CUP PO SCH (08:38)
[2016-11-01] MEDS: DOCUSATE SODIUM 100 MG CAP PO SCH ×2 (08:38→20:36)
[2016-11-01] MEDS: POLYETHYLENE GLYCOL 17 GM PKG PO SCH (08:38)
[2016-11-01] MEDS: SODIUM CHLORIDE 0.9% FLUSH 10 ML FLUSH IV FLUSH SCH ×2 (08:39→20:37)
[2016-11-01] MEDS: GABAPENTIN 300 MG CAP PO SCH ×2 (08:39→20:37)
[2016-11-01] MEDS: HYDROCHLOROTHIAZIDE 12.5 MG CAP PO SCH (08:39)
[2016-11-01] MEDS: MULTIVITAMINS/MINERALS THERAPEUTIC TAB PO SCH (08:39)
[2016-11-01] MEDS: PRAVASTATIN SOD 40 MG TAB PO SCH (08:39)
[2016-11-01] MEDS: VERAPAMIL HCL 180 MG SUSTAINED RELEASE TAB PO SCH ×2 (08:39→20:36)
[2016-11-01] MEDS: SERTRALINE HCL 50 MG TAB PO SCH (08:39)
[2016-11-01] MEDS ORDERED: MAGNESIUM CITRATE SOLN 300 ML BTL PO ONE (10:45)
--- NOTE | 2016-11-01 10:46 | HHI.GIFU ---
Subjective Remarks Feeling a little better today. Still has a little nausea, but improved. Pain improved today. Was able to eat a little of breakfast today. No BM since Friday. (Emani Means) Objective Vitals I&O Vital Signs Date Time Temp Pulse Resp B/P Pulse Ox O2 Delivery O2 Flow Rate FiO2 11/01/16 09:34 94 11/01/16 08:01 98.8 102 20 169/79 93 11/01/16 08:00 83 11/01/16 07:57 93 Nasal Cannula 4.00 11/01/16 07:46 95 Nasal Cannula 5.00 11/01/16 07:16 82 11/01/16 06:20 87 11/01/16 05:42 77 11/01/16 04:02 75 11/01/16 03:15 98.3 80 17 149/68 93 11/01/16 03:15 93 Nasal Cannula 4.00 11/01/16 03:00 78 11/01/16 02:48 78 11/01/16 01:17 96 11/01/16 00:16 97 10/31/16 23:42 95 Nasal Cannula 4.00 10/31/16 23:42 98.0 104 16 126/72 95 10/31/16 23:14 112 10/31/16 22:00 94 10/31/16 21:00 92 10/31/16 20:24 96 Nasal Cannula 4.00 10/31/16 20:00 100 10/31/16 19:15 97.4 94 16 143/65 94 10/31/16 19:15 94 Nasal Cannula 4.00 10/31/16 19:00 87 10/31/16 18:33 87 10/31/16 17:35 76 10/31/16 16:27 76 10/31/16 15:00 97.9 84 16 124/66 90 10/31/16 15:00 91 Nasal Cannula 4.00 10/31/16 15:00 72 10/31/16 14:05 76 10/31/16 13:02 75 10/31/16 12:08 70 10/31/16 11:28 82 10/31/16 11:20 95 Partial Rebreather 15.00 10/31/16 11:17 97.9 84 16 124/66 90 10/31/16 11:09 91 Simple Mask 6.00 I/O 10/31/16 10/31/16 10/31/16 11/01/16 11/01/16 11/01/16 07:00 15:00 23:00 07:00 15:00 23:00 Intake Total 315 ml 1940 ml 450 ml Output Total 1090 ml 720 ml Balance -775 ml 1940 ml -270 ml Intake Oral 315 ml 840 ml 450 ml IV Total 1100 ml Output Urine Total 750 ml 500 ml Stool Total 0 ml Chest Tube Drainage Total 340 ml 220 ml # Voids 4 # Bowel Movements 0 0 Laboratory Laboratory Tests Test 11/01/16 05:47 White Blood Count 15.7 Red Blood Count 3.57 Hemoglobin 10.2 Hematocrit 31.1 Mean Corpuscular Volume 86.9 Mean Corpuscular Hemoglobin 28.6 Mean Corpuscular Hemoglobin 32.9 Concent Red Cell Distribution Width 15.6 Platelet Count 276 Mean Platelet Volume 7.7 Neutrophils (%) (Auto) 77.3 Lymphocytes (%) (Auto) 11.8 Monocytes (%) (Auto) 8.4 Eosinophils (%) (Auto) 2.1 Basophils (%) (Auto) 0.4 Neutrophils # (Auto) 12.1 Lymphocytes # (Auto) 1.9 Monocytes # (Auto) 1.3 Eosinophils # (Auto) 0.3 Basophils # (Auto) 0.1 CBC Comment AUTO DIFF Differential Total Cells 100 Counted Neutrophils % (Manual) 80 Lymphocytes % 8 Monocytes % 6 Eosinophils % 3 Basophils % 1 Neutrophils # (Manual) 12.9 Metamyelocytes 1 Myelocytes 1 Nucleated Red Blood Cells 1 Differential Comment FINAL DIFF MANUAL Platelet Estimate NORMAL Platelet Morphology Comment NORMAL Red Cell Morphology Comment NORMAL Sodium Level 139 Potassium Level 3.5 Chloride Level 99 Carbon Dioxide Level 33.7 Anion Gap 6 Blood Urea Nitrogen 13 Creatinine 0.57 Estimat Glomerular Filtration 104 Rate Random Glucose 98 Calcium Level 8.3 Magnesium Level 2.2 Imaging Last Impressions Chest X-Ray 10/31/16 0500 Signed Impressions: Service Date/Time: October 03:35 - CONCLUSION: 1. Tiny left apical pneumothorax with 4 mm of separation 2. Improving aeration of the left lower lung compared to the prior study. Abilio Carlisle MD Abdomen X-Ray 10/31/16 0000 Signed Impressions: Service Date/Time: October 17:03 - CONCLUSION: Mildly nonspecific, nonobstructive bowel gas pattern. Aidan Leal MD Physical Exam HEENT: Normocephalic; atraumatic; no jaundice. CHEST: Resp shallow/even. O2 5L, O2 sat 92%, Left drsg d/i, Left CT with serosanguineous drainage CARDIAC: RRR ABDOMEN: Soft, mildly bloated, mild diffuse tenderness; no hepatosplenomegaly; bowel sounds are present in all four quadrants. EXTREMITIES: Mild edema. SKIN: Ecchymosis lue VASCULAR ULTRASOUND TECHNOLOGIST: No focal deficits; alert and oriented times three. (MeansEmani Romo [facility]) Assessment and Plan Plan ASSESSMENT: - Epigastric pain, nausea, bloating. Pt with long hx of GERD/Dyspepsia- has been controlled with omeprazole at home. She is getting Protonix 40mg at hs here. She states that since her surgery, she has been having increased epigastric pain, nausea, bloating associated with po intake. She last had an EGD/Colonoscopy 3 years ago. She denies any PUD. Of note, she had recent surgery and is on O2 5L via n/c and sats are 92%. She has sob with minimal exertion. Protonix to BID dosing, Add Carafate. Improved, still with some nausea. Was able to eat some breakfast this morning. - Constipation. No bm since Friday despite miralax. KUB as above. Will give one bottle of Mag. Citrate. - Dysphagia, occasional solids getting caught in lower esophagus- very mild, chronic. Not currently having. PPI - GERD. PPI - Leukocytosis, WBC 15.7 - LLL Mass. S/P attempted robotic left lower lobectomy with conversion to left muscle sparing posterolateral thoracotomy, repair of pulmonary artery, mediastinal lymph node dissection, intercostal nerve block for left lower lobe mass on 10/28/[address] Brown. She currently has a chest tube and her O2 sats are 92% on 5L via n/c. She has shortness of breath with minimal exertion. - HTN, COPD, Allergic rhinitis, Hyperlipidemia, HTN, Insomnia, EVELINA, Rheumatoid arthritis. Per primary PLAN: - INES - Cont. Protonix - Cont. Carafate - Magnesium citrate x 1 - Cont. Bowel regimen- miralax, senokot, colace - Supportive care- EGD +/- Dilatations once she is stable from pulmonary standpoint - Pt seen and examined by Dr. Enriquez and myself and this note is written on his behalf (Emani Means) Physician Comments Patient seen and examined Agree with above Continue with current supportive care Monitor labs EGD when more stable (Isreal Enriquez MD) Emani Means Nov 01, 2016 10:46 Isreal Enriquez MD Nov 01, 2016 22:30
--- NOTE | 2016-11-01 15:19 | PD.CAR.PN ---
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 3 units PRBC, EBL 2000cc,245 cell saver 10/29 had some confusion last pm, now improved, ENT NURSE DC anxious , on nasal cannula po pain control OOB ambulate , chest tube drained 112cc/ 12 hrs transfer to stepdown unit 10/30 chest drained 220cc/ 12 hrs, additional 100cc sero sang drainage since this am remains on 02 at 3 liters encourage ambulation, consult for pt home meds resumed for hypertension gentle diuresis 10/31 pt had episode of epigastric pain after eating, became SOB, changed to venti mask , 2/ sat 88% improved to 93% "states she has been having difficulty and pain epigastric area since her surgery will check ECG, consult speech therapy and GI for dysphagia has small timy left apical ptx, no air leak noted eval for chest tube removal 11/01 chest tube removed without difficulty still on 4 liters , wean as tolerated, check walk test in am / may need home 02 appreciate GI input, still has some discomfort with swallowing, slight improvement no BM , additional GI motility meds added Path report discussed with pt / consult oncology Objective: GENERAL: SKIN: Warm and dry./ incision intact left lateral chest wall HEAD: Normocephalic. EYES: No scleral icterus. No injection or drainage. NECK: Supple, trachea midline. No JVD or lymphadenopathy. CARDIOVASCULAR: Regular rate and rhythm without murmurs, gallops, or rubs. RESPIRATORY: chest tube removed without difficulty .diminished left No accessory muscle use. GASTROINTESTINAL: Abdomen soft, non-tender, nondistended. MUSCULOSKELETAL: No cyanosis, or edema. BACK: Nontender without obvious deformity. No CVA tenderness. Vital Signs Date Time Temp Pulse Resp B/P Pulse Ox O2 Delivery O2 Flow Rate FiO2 11/01/16 14:00 82 11/01/16 13:01 97 Nasal Cannula 5.00 11/01/16 13:00 81 11/01/16 12:37 84 11/01/16 11:12 93 Nasal Cannula 4.00 11/01/16 11:12 85 11/01/16 11:09 98.8 102 20 150/88 93 11/01/16 11:00 101 11/01/16 10:00 88 11/01/16 09:34 94 11/01/16 08:01 98.8 102 20 169/79 93 11/01/16 08:00 83 11/01/16 07:57 93 Nasal Cannula 4.00 11/01/16 07:46 95 Nasal Cannula 5.00 11/01/16 07:16 82 11/01/16 06:20 87 11/01/16 05:42 77 11/01/16 04:02 75 11/01/16 03:15 98.3 80 17 149/68 93 11/01/16 03:15 93 Nasal Cannula 4.00 11/01/16 03:00 78 11/01/16 02:48 78 11/01/16 01:17 96 11/01/16 00:16 97 10/31/16 23:42 95 Nasal Cannula 4.00 10/31/16 23:42 98.0 104 16 126/72 95 10/31/16 23:14 112 10/31/16 22:00 94 10/31/16 21:00 92 10/31/16 20:24 96 Nasal Cannula 4.00 10/31/16 20:00 100 10/31/16 19:15 97.4 94 16 143/65 94 10/31/16 19:15 94 Nasal Cannula 4.00 10/31/16 19:00 87 10/31/16 18:33 87 10/31/16 17:35 76 10/31/16 16:27 76 Labs: Laboratory Tests Test 11/01/16 05:47 White Blood Count 15.7 TH/MM3 (4.0-11.0) Red Blood Count 3.57 MIL/MM3 (4.00-5.30) Hemoglobin 10.2 GM/DL (11.6-15.3) Hematocrit 31.1 % (35.0-46.0) Mean Corpuscular Volume 86.9 FL (80.0-100.0) Mean Corpuscular Hemoglobin 28.6 PG (27.0-34.0) Mean Corpuscular Hemoglobin 32.9 % Concent (32.0-36.0) Red Cell Distribution Width 15.6 % (11.6-17.2) Platelet Count 276 TH/MM3 (150-450) Mean Platelet Volume 7.7 FL (7.0-11.0) Neutrophils (%) (Auto) 77.3 % (16.0-70.0) Lymphocytes (%) (Auto) 11.8 % (9.0-44.0) Monocytes (%) (Auto) 8.4 % (0.0-8.0) Eosinophils (%) (Auto) 2.1 % (0.0-4.0) Basophils (%) (Auto) 0.4 % (0.0-2.0) Neutrophils # (Auto) 12.1 TH/MM3 (1.8-7.7) Lymphocytes # (Auto) 1.9 TH/MM3 (1.0-4.8) Monocytes # (Auto) 1.3 TH/MM3 (0-0.9) Eosinophils # (Auto) 0.3 TH/MM3 (0-0.4) Basophils # (Auto) 0.1 TH/MM3 (0-0.2) CBC Comment AUTO DIFF Differential Total Cells 100 Counted Neutrophils % (Manual) 80 % (16-70) Lymphocytes % 8 % (9-44) Monocytes % 6 % (0-8) Eosinophils % 3 % (0-4) Basophils % 1 % (0-2) Neutrophils # (Manual) 12.9 TH/MM3 (1.8-7.7) Metamyelocytes 1 % (0-1) Myelocytes 1 % (0-0) Nucleated Red Blood Cells 1 /100 WBC (0-0) Differential Comment FINAL DIFF MANUAL Platelet Estimate NORMAL (NORMAL) Platelet Morphology Comment NORMAL (NORMAL) Red Cell Morphology Comment NORMAL (NORMAL) Sodium Level 139 MEQ/L (136-145) Potassium Level 3.5 MEQ/L (3.5-5.1) Chloride Level 99 MEQ/L (98-107) Carbon Dioxide Level 33.7 MEQ/L (21.0-32.0) Anion Gap 6 MEQ/L (5-15) Blood Urea Nitrogen 13 MG/DL (7-18) Creatinine 0.57 MG/DL (0.50-1.00) Estimat Glomerular Filtration 104 ML/MIN Rate (>89) Random Glucose 98 MG/DL (74-106) Calcium Level 8.3 MG/DL (8.5-10.1) Magnesium Level 2.2 MG/DL (1.5-2.5) Result Diagram: 11/01/16 0547 11/01/16 0547 Telemetry: NSR (1) Lung cancer (2) left lower lobe lung mass Plan: path / preliminary invasive squamous cell CA/ [id number] histology: 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
[2016-11-01] MEDS ORDERED: SUCR1S PO (15:29)
[2016-11-01] MEDS ORDERED: BISACODYL 10 MG SUPP RECTAL ONE (16:00)
[2016-11-01] MEDS ORDERED: SOD PHOSPHATE/SOD BIPHOSPHATE (ADULT) ENEMA 133ML PR ONE (16:00)
[2016-11-01] MEDS: ENALAPRIL MALEATE 10 MG TAB PO SCH (20:36)
[2016-11-01] MEDS: SENNOSIDES 8.6 MG TAB PO SCH (20:37)
[2016-11-02] VITALS (26 sets, daily range): BP systolic 104–141; BP diastolic 57–75; PULSE 65–101; RESP 18–20; TEMP 97.9–98.6; O2SAT 93–95
[2016-11-02] MEDS: ACETAMINOPHEN/HYDROcodone 325 MG/5 MG TAB PO PRN ×3 (05:44→16:41)
[2016-11-02] MEDS: SUCRALFATE 1 GM/10 ML CUP PO SCH ×4 (05:44→20:51)
[2016-11-02] MEDS: PANTOPRAZOLE SODIUM 40 MG VIAL IV PUSH SCH ×2 (05:45→16:29)
--- NOTE | 2016-11-02 06:15 | RADRPT ---
EXAM DATE/TIME: 11/02/2016 05:25 [facility] COMPARISON: CHEST SINGLE AP, October 31, 2016, 9:55. ABDOMEN KUB ONLY, October 31, 2016, 17:03. INDICATIONS : Shortness of breath, possible pulmonary disease. MEDICAL HISTORY : Carcinoma, lung. Rheumatoid arthritis. SURGICAL HISTORY : Hysterectomy. Cholecystectomy. Lobectomy. thoracotomy ENCOUNTER: Subsequent ACUITY: 4 - 6 days PAIN SCORE: 2/10 LOCATION: Bilateral chest FINDINGS: Left chest tube has been removed. There is a moderate to large left pleural effusion with mid and low er lung predominant consolidation worsening. Also appears to be some modest worsening of left-sided v olume loss. I don't see a pneumothorax. Mild atelectasis developing in the right lung base. Heart size stable, upper limits of normal. CONCLUSION: 1. Left chest tube removed. No pneumothorax seen. There is modest worsening of left pleural effusion and parenchymal consolidation. 2. Mild right base atelectasis. Terrence Serrano MD on November 02, 2016 at 6:11 Board Certified Radiologist. This report was verified electronically.
[2016-11-02] MEDS: RESP: ALBUTEROL 2.5 MG/IPRATROPIUM 0.5 MG NEB (SCH) NEB ×3 (08:43→19:48)
[2016-11-02] MEDS: POLYETHYLENE GLYCOL 17 GM PKG PO SCH (09:00)
[2016-11-02] MEDS: MULTIVITAMINS/MINERALS THERAPEUTIC TAB PO SCH (09:00)
[2016-11-02] MEDS: SERTRALINE HCL 50 MG TAB PO SCH (09:00)
[2016-11-02] MEDS: MAGNESIUM HYDROXIDE SUSP 30 ML CUP PO SCH (09:00)
[2016-11-02] MEDS: DOCUSATE SODIUM 100 MG CAP PO SCH ×2 (09:00→20:51)
[2016-11-02] MEDS: SODIUM CHLORIDE 0.9% FLUSH 10 ML FLUSH IV FLUSH SCH ×2 (09:00→20:51)
[2016-11-02] MEDS: PRAVASTATIN SOD 40 MG TAB PO SCH (09:00)
[2016-11-02] MEDS: GABAPENTIN 300 MG CAP PO SCH ×2 (09:01→20:51)
[2016-11-02] MEDS: HYDROCHLOROTHIAZIDE 12.5 MG CAP PO SCH (09:01)
[2016-11-02] MEDS: VERAPAMIL HCL 180 MG SUSTAINED RELEASE TAB PO SCH ×2 (09:01→20:51)
[2016-11-02] MEDS: ENALAPRIL MALEATE 10 MG TAB PO SCH ×2 (09:01→20:51)
[2016-11-02] MEDS ORDERED: FUROSEMIDE 40 MG/4 ML VIAL IV PUSH ONE (09:45)
--- NOTE | 2016-11-02 10:35 | HHI.GIFU ---
Subjective Remarks 71 yo female in no apparent distress. She is sitting up in chair today. O2 via NC in place at 4L, O2 sat 95%. Reports she continues to have epigastric abdominal pain and nausea. (Gabriela Sanchez) Objective Vitals I&O Vital Signs Date Time Temp Pulse Resp B/P Pulse Ox O2 Delivery O2 Flow Rate FiO2 11/02/16 10:00 82 11/02/16 09:00 81 11/02/16 08:44 95 Nasal Cannula 4.00 11/02/16 08:00 79 11/02/16 07:00 98.4 79 18 131/75 93 11/02/16 07:00 82 11/02/16 07:00 93 Nasal Cannula 4.00 11/02/16 06:00 76 11/02/16 05:00 77 11/02/16 04:00 74 11/02/16 03:00 97.9 74 18 119/57 94 11/02/16 03:00 70 11/02/16 03:00 94 Nasal Cannula 4.00 11/02/16 02:00 70 11/02/16 01:00 70 11/02/16 00:00 80 11/01/16 23:00 98.1 90 20 130/60 97 11/01/16 23:00 97 Nasal Cannula 4.00 11/01/16 23:00 93 11/01/16 22:00 86 11/01/16 21:00 102 11/01/16 20:00 86 11/01/16 19:40 94 Nasal Cannula 4.00 11/01/16 19:00 98.5 86 18 147/78 95 11/01/16 19:00 85 11/01/16 19:00 95 Nasal Cannula 6.00 Humidified 11/01/16 18:01 84 11/01/16 17:00 84 11/01/16 16:00 79 11/01/16 15:59 98.7 90 18 145/65 97 11/01/16 15:33 95 3.00 11/01/16 15:00 83 11/01/16 14:00 82 11/01/16 13:01 97 Nasal Cannula 5.00 11/01/16 13:00 81 11/01/16 12:37 84 11/01/16 11:12 93 Nasal Cannula 4.00 11/01/16 11:12 85 11/01/16 11:09 98.8 102 20 150/88 93 11/01/16 11:00 101 I/O 11/01/16 11/01/16 11/01/16 11/02/16 11/02/16 11/02/16 07:00 15:00 23:00 07:00 15:00 23:00 Intake Total 450 ml 1660 ml 480 ml Output Total 720 ml 500 ml Balance -270 ml 1160 ml 480 ml Intake Oral 450 ml 560 ml 480 ml IV Total 1100 ml 0 ml Output Urine Total 500 ml 500 ml Stool Total 0 ml Chest Tube Drainage Total 220 ml # Voids 2 # Bowel Movements 1 1 Laboratory Laboratory Tests Test 10/28/16 10/28/16 11/01/16 06:10 10:07 05:47 Blood Type A POSITIVE Antibody Screen NEGATIVE Crossmatch Leukocyte-Reduced Red Blood Cells Blood Bank Comment White Blood Count 15.7 TH/MM3 Red Blood Count 3.57 MIL/MM3 Hemoglobin 10.2 GM/DL Hematocrit 31.1 % Mean Corpuscular Volume 86.9 FL Mean Corpuscular Hemoglobin 28.6 PG Mean Corpuscular Hemoglobin 32.9 % Concent Red Cell Distribution Width 15.6 % Platelet Count 276 TH/MM3 Mean Platelet Volume 7.7 FL Neutrophils (%) (Auto) 77.3 % Lymphocytes (%) (Auto) 11.8 % Monocytes (%) (Auto) 8.4 % Eosinophils (%) (Auto) 2.1 % Basophils (%) (Auto) 0.4 % Neutrophils # (Auto) 12.1 TH/MM3 Lymphocytes # (Auto) 1.9 TH/MM3 Monocytes # (Auto) 1.3 TH/MM3 Eosinophils # (Auto) 0.3 TH/MM3 Basophils # (Auto) 0.1 TH/MM3 CBC Comment AUTO DIFF Differential Total Cells 100 Counted Neutrophils % (Manual) 80 % Lymphocytes % 8 % Monocytes % 6 % Eosinophils % 3 % Basophils % 1 % Neutrophils # (Manual) 12.9 TH/MM3 Metamyelocytes 1 % Myelocytes 1 % Nucleated Red Blood Cells 1 /100 WBC Differential Comment FINAL DIFF MANUAL Platelet Estimate NORMAL Platelet Morphology Comment NORMAL Red Cell Morphology Comment NORMAL Sodium Level 139 MEQ/L Potassium Level 3.5 MEQ/L Chloride Level 99 MEQ/L Carbon Dioxide Level 33.7 MEQ/L Anion Gap 6 MEQ/L Blood Urea Nitrogen 13 MG/DL Creatinine 0.57 MG/DL Estimat Glomerular Filtration 104 ML/MIN Rate Random Glucose 98 MG/DL Calcium Level 8.3 MG/DL Magnesium Level 2.2 MG/DL Imaging Last Impressions Chest X-Ray 11/02/16 0600 Signed Impressions: Service Date/Time: Wednesday, November 02, 2016 05:25 - CONCLUSION: 1. Left chest tube removed. No pneumothorax seen. There is modest worsening of left pleural effusion and parenchymal consolidation. 2. Mild right base atelectasis. Terrence Serrano MD Abdomen X-Ray 10/31/16 0000 Signed Impressions: Service Date/Time: October 17:03 - CONCLUSION: Mildly nonspecific, nonobstructive bowel gas pattern. Aidan Leal MD Physical Exam HEENT: Normocephalic; atraumatic; no jaundice. CHEST: Resp shallow/even. O2 4L, O2 sat 95% CARDIAC: RRR ABDOMEN: Soft, mildly bloated, mild diffuse tenderness; no hepatosplenomegaly; bowel sounds are present x 4 quadrants EXTREMITIES: Mild edema. SKIN: Ecchymosis LUE PATTERN CLERK: No focal deficits; A&O x3. (Gabriela Sanchez) Assessment and Plan Plan ASSESSMENT: - Epigastric pain, nausea, bloating. Pt with long hx of GERD/Dyspepsia- has been controlled with omeprazole at home. She is getting Protonix 40mg at hs here. She states that since her surgery, she has been having increased epigastric pain, nausea, bloating associated with po intake. She last had an EGD/Colonoscopy 3 years ago. She denies any PUD. Of note, she had recent surgery and is on O2 4L via n/c and sats are 95%. She has sob with minimal exertion. Protonix to BID dosing, on Carafate. Improved, still with some nausea. - Constipation. Improved. Has had 2 BM after mag citrate yesterday - Dysphagia, occasional solids getting caught in lower esophagus- very mild, chronic. Not currently having. PPI - GERD. PPI - Leukocytosis, WBC 15.7 (11/01) - LLL Mass. S/P attempted robotic left lower lobectomy with conversion to left muscle sparing posterolateral thoracotomy, repair of pulmonary artery, mediastinal lymph node dissection, intercostal nerve block for left lower lobe mass on 10/28/[address] Brown. Chest tube has been removed. Chest X-Ray 11/02/16--1. Left chest tube removed. No pneumothorax seen. There is modest worsening of left pleural effusion and parenchymal consolidation. 2. Mild right base atelectasis. She has shortness of breath with minimal exertion. - HTN, COPD, Allergic rhinitis, Hyperlipidemia, HTN, Insomnia, EVELINA, Rheumatoid arthritis. Per primary PLAN: - INES - Cont. Protonix - Cont. Carafate - Cont. Bowel regimen- miralax, senokot, colace - Supportive care- EGD +/- Dilatations once she is stable from pulmonary standpoint Patient seen and examined by Dr. Enriquez and myself and this note is written on his behalf (Gabriela Sanchez) Physician Comments Patient seen and examined Agree with above Continue with current supportive care Monitor labs EGD when more stable (Isreal Enriquez MD) Gabriela Sanchez Nov 02, 2016 10:35 Isreal Enriquez MD Nov 02, 2016 18:08
[2016-11-02] MEDS: SENNOSIDES 8.6 MG TAB PO SCH (20:51)
[2016-11-03] VITALS (30 sets, daily range): BP systolic 132–144; BP diastolic 60–79; PULSE 64–103; RESP 20; TEMP 98.2–98.6; O2SAT 94–97
[2016-11-03] MEDS: PANTOPRAZOLE SODIUM 40 MG VIAL IV PUSH SCH ×2 (05:36→17:42)
[2016-11-03] MEDS: RESP: ALBUTEROL 2.5 MG/IPRATROPIUM 0.5 MG NEB (SCH) NEB ×3 (07:43→20:18)
[2016-11-03] MEDS: SUCRALFATE 1 GM/10 ML CUP PO SCH ×4 (07:50→22:00)
[2016-11-03] MEDS: HYDROCHLOROTHIAZIDE 12.5 MG CAP PO SCH (08:36)
[2016-11-03] MEDS: PRAVASTATIN SOD 40 MG TAB PO SCH (08:37)
[2016-11-03] MEDS: MULTIVITAMINS/MINERALS THERAPEUTIC TAB PO SCH (08:37)
[2016-11-03] MEDS: SERTRALINE HCL 50 MG TAB PO SCH (08:38)
[2016-11-03] MEDS: VERAPAMIL HCL 180 MG SUSTAINED RELEASE TAB PO SCH ×2 (08:38→22:00)
[2016-11-03] MEDS: ENALAPRIL MALEATE 10 MG TAB PO SCH ×2 (08:38→22:00)
[2016-11-03] MEDS: GABAPENTIN 300 MG CAP PO SCH ×2 (08:38→22:00)
[2016-11-03] MEDS: ACETAMINOPHEN/HYDROcodone 325 MG/5 MG TAB PO PRN ×2 (08:39→12:19)
[2016-11-03] MEDS: SODIUM CHLORIDE 0.9% FLUSH 10 ML FLUSH IV FLUSH SCH ×2 (08:39→22:00)
[2016-11-03] MEDS: MAGNESIUM HYDROXIDE SUSP 30 ML CUP PO SCH (08:40)
[2016-11-03] MEDS: POLYETHYLENE GLYCOL 17 GM PKG PO SCH (08:40)
[2016-11-03] MEDS: DOCUSATE SODIUM 100 MG CAP PO SCH ×2 (08:40→22:00)
--- NOTE | 2016-11-03 09:44 | PD.CAR.PN ---
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 3 units PRBC, EBL 2000cc,245 cell saver 10/29 had some confusion last pm, now improved, TRIALS MANAGER DC anxious , on nasal cannula po pain control OOB ambulate , chest tube drained 112cc/ 12 hrs transfer to stepdown unit 10/30 chest drained 220cc/ 12 hrs, additional 100cc sero sang drainage since this am remains on 02 at 3 liters encourage ambulation, consult for pt home meds resumed for hypertension gentle diuresis 10/31 pt had episode of epigastric pain after eating, became SOB, changed to venti mask , 2/2 sat 88% improved to 93% "states she has been having difficulty and pain epigastric area since her surgery will check ECG, consult speech therapy and GI for dysphagia has small timy left apical ptx, no air leak noted eval for chest tube removal 11/01 chest tube removed without difficulty still on 4 liters , wean as tolerated, check walk test in am / may need home 02 appreciate GI input, still has some discomfort with swallowing, slight improvement no BM , additional GI motility meds added Path report discussed with pt / consult oncology 11/03 Doing better D/C home in am Objective: Vital Signs Date Time Temp Pulse Resp B/P Pulse Ox O2 Delivery O2 Flow Rate FiO2 11/03/16 09:00 92 11/03/16 08:00 87 11/03/16 08:00 98.5 88 20 138/64 94 11/03/16 07:47 94 Nasal Cannula 4.00 11/03/16 07:43 96 Nasal Cannula 4.00 11/03/16 07:00 81 11/03/16 06:00 88 11/03/16 05:24 80 11/03/16 04:26 80 11/03/16 04:00 98.6 96 20 144/71 94 11/03/16 03:52 94 Nasal Cannula 4.00 11/03/16 03:00 84 11/03/16 02:00 103 11/03/16 01:00 94 11/03/16 00:03 94 11/03/16 00:00 98.2 103 20 143/79 94 11/02/16 23:15 94 Nasal Cannula 4.00 11/02/16 23:00 93 11/02/16 22:00 84 11/02/16 21:00 84 11/02/16 20:00 98.2 76 20 125/60 94 11/02/16 20:00 94 Nasal Cannula 4.00 11/02/16 20:00 84 11/02/16 19:48 93 Nasal Cannula 4.00 11/02/16 19:00 76 11/02/16 18:00 84 11/02/16 17:00 70 11/02/16 16:09 67 11/02/16 15:00 68 11/02/16 15:00 98.4 72 18 104/58 93 11/02/16 15:00 96 Nasal Cannula 4.00 11/02/16 14:00 78 11/02/16 13:00 91 11/02/16 12:00 99 11/02/16 11:00 95 Nasal Cannula 4.00 11/02/16 11:00 98.6 82 18 141/69 95 11/02/16 11:00 101 11/02/16 10:00 82 Result Diagram: 11/01/16 0547 11/01/16 0547 (1) Lung cancer (2) left lower lobe lung mass Plan: path / preliminary invasive squamous cell CA/ [id number] histology: moderately differentiated grade 2 squamous cell ca lymph node involvement Oncology consult Dr Duron (3) COPD (chronic obstructive pulmonary disease) Plan: nebs (4) Rheumatoid arthritis Plan: hold methotrexate dose today (5) S/P thoracotomy Plan: wean 02, nebs, ezpap , acpaella OOB, PT CM eval for [facility] pain control (6) Anxiety Plan: prn xanax (7) Hypertension Plan: resume home meds / (8) Hypoxemia Plan: 02 to maintain sat > 92% walk test in am may need home 02 (9) Dysphagia Plan: GI consult gi motility meds carafate added cleared by speech therapy Radha Brown MD Nov 03, 2016 09:44
--- NOTE | 2016-11-03 11:22 | HHI.GIFU ---
Subjective Remarks 71 yo female lying in bed in no acute distress. Denies abdominal pain. No N/V. Reports minimal dysphagia. O2 via NC 3L at 94% O2 saturation. Patient states she thinks she is being discharged tomorrow. She would like to followup with GI as outpatient for EGD with dilation. (Gabriela Sanchez) Objective Vitals I&O Vital Signs Date Time Temp Pulse Resp B/P Pulse Ox O2 Delivery O2 Flow Rate FiO2 11/03/16 10:00 92 11/03/16 09:43 16 11/03/16 09:00 92 11/03/16 08:00 87 11/03/16 08:00 98.5 88 20 138/64 94 11/03/16 07:47 94 Nasal Cannula 4.00 11/03/16 07:43 96 Nasal Cannula 4.00 11/03/16 07:00 81 11/03/16 06:00 88 11/03/16 05:24 80 11/03/16 04:26 80 11/03/16 04:00 98.6 96 20 144/71 94 11/03/16 03:52 94 Nasal Cannula 4.00 11/03/16 03:00 84 11/03/16 02:00 103 11/03/16 01:00 94 11/03/16 00:03 94 11/03/16 00:00 98.2 103 20 143/79 94 11/02/16 23:15 94 Nasal Cannula 4.00 11/02/16 23:00 93 11/02/16 22:00 84 11/02/16 21:00 84 11/02/16 20:00 98.2 76 20 125/60 94 11/02/16 20:00 94 Nasal Cannula 4.00 11/02/16 20:00 84 11/02/16 19:48 93 Nasal Cannula 4.00 11/02/16 19:00 76 11/02/16 18:00 84 11/02/16 17:00 70 11/02/16 16:09 67 11/02/16 15:00 68 11/02/16 15:00 98.4 72 18 104/58 93 11/02/16 15:00 96 Nasal Cannula 4.00 11/02/16 14:00 78 11/02/16 13:00 91 11/02/16 12:00 99 I/O 11/02/16 11/02/16 11/02/16 11/03/16 11/03/16 11/03/16 07:00 15:00 23:00 07:00 15:00 23:00 Intake Total 480 ml 600 ml 240 ml Output Total 600 ml 550 ml Balance 480 ml 0 ml -310 ml Intake Oral 480 ml 600 ml 240 ml IV Total 0 ml Output Urine Total 600 ml 550 ml # Voids 2 4 # Bowel Movements 1 1 Imaging Laboratory Tests Test 10/28/16 11/01/16 10:07 05:47 Crossmatch Leukocyte-Reduced Red Blood Cells Blood Bank Comment White Blood Count 15.7 TH/MM3 Red Blood Count 3.57 MIL/MM3 Hemoglobin 10.2 GM/DL Hematocrit 31.1 % Mean Corpuscular Volume 86.9 FL Mean Corpuscular Hemoglobin 28.6 PG Mean Corpuscular Hemoglobin 32.9 % Concent Red Cell Distribution Width 15.6 % Platelet Count 276 TH/MM3 Mean Platelet Volume 7.7 FL Neutrophils (%) (Auto) 77.3 % Lymphocytes (%) (Auto) 11.8 % Monocytes (%) (Auto) 8.4 % Eosinophils (%) (Auto) 2.1 % Basophils (%) (Auto) 0.4 % Neutrophils # (Auto) 12.1 TH/MM3 Lymphocytes # (Auto) 1.9 TH/MM3 Monocytes # (Auto) 1.3 TH/MM3 Eosinophils # (Auto) 0.3 TH/MM3 Basophils # (Auto) 0.1 TH/MM3 CBC Comment AUTO DIFF Differential Total Cells 100 Counted Neutrophils % (Manual) 80 % Lymphocytes % 8 % Monocytes % 6 % Eosinophils % 3 % Basophils % 1 % Neutrophils # (Manual) 12.9 TH/MM3 Metamyelocytes 1 % Myelocytes 1 % Nucleated Red Blood Cells 1 /100 WBC Differential Comment FINAL DIFF MANUAL Platelet Estimate NORMAL Platelet Morphology Comment NORMAL Red Cell Morphology Comment NORMAL Sodium Level 139 MEQ/L Potassium Level 3.5 MEQ/L Chloride Level 99 MEQ/L Carbon Dioxide Level 33.7 MEQ/L Anion Gap 6 MEQ/L Blood Urea Nitrogen 13 MG/DL Creatinine 0.57 MG/DL Estimat Glomerular Filtration 104 ML/MIN Rate Random Glucose 98 MG/DL Calcium Level 8.3 MG/DL Magnesium Level 2.2 MG/DL Physical Exam HEENT: PERRLA. Normocephalic; atraumatic; no jaundice. CHEST: Resp shallow/even. O2 3L, O2 sat 94% CARDIAC: RRR ABDOMEN: Soft, mildly bloated, nontender; no hepatosplenomegaly; bowel sounds are present x 4 quadrants EXTREMITIES: Mild edema. 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 (Gabriela Sanchez) Assessment and Plan Plan ASSESSMENT: - Epigastric pain, nausea, bloating. Pt with long hx of GERD/Dyspepsia- has been controlled with omeprazole at home. She is getting Protonix 40mg at hs here. She states that since her surgery, she has been having increased epigastric pain, nausea, bloating associated with po intake. She last had an EGD/Colonoscopy 3 years ago. She denies any PUD. Of note, she had recent surgery and is on O2 4L via n/c and sats are 95%. She has sob with minimal exertion. Protonix to BID dosing, on Carafate. Improved, denies abdominal pain. No N/V today. - Constipation. Improved. Had large BM this morning. - Dysphagia, occasional solids getting caught in lower esophagus- very mild, chronic. Not currently having. PPI - GERD. PPI - Leukocytosis, WBC 15.7 (11/01) - LLL Mass. S/P attempted robotic left lower lobectomy with conversion to left muscle sparing posterolateral thoracotomy, repair of pulmonary artery, mediastinal lymph node dissection, intercostal nerve block for left lower lobe mass on 10/28/[address] Bronw. Chest tube has been removed. Chest X-Ray 11/02/16--1. Left chest tube removed. No pneumothorax seen. There is modest worsening of left pleural effusion and parenchymal consolidation. 2. Mild right base atelectasis. She has shortness of breath with minimal exertion. - HTN, COPD, Allergic rhinitis, Hyperlipidemia, HTN, Insomnia, EVELINA, Rheumatoid arthritis. Per primary PLAN: - INES - Cont. Protonix - Cont. Carafate - Cont. Bowel regimen- miralax, senokot, colace - Okay to FU with GI as outpatient for EGD with dilation Patient seen and examined by Dr. Enriquez and myself and this note is written on his behalf (Gabriela Sanchez) Physician Comments Patient seen and examined Agree with above Continue with current supportive care Monitor labs EGD when more stable (Isreal Enriquez MD) Gabriela Sanchez Nov 03, 2016 11:22 Isreal Enrqiuez MD Nov 03, 2016 21:42
[2016-11-03] MEDS: SENNOSIDES 8.6 MG TAB PO SCH (22:00)
[2016-11-04] VITALS (13 sets, daily range): BP systolic 114–145; BP diastolic 46–72; PULSE 66–96; RESP 20; TEMP 97.7–98.2; O2SAT 92–98
[2016-11-04] MEDS: ACETAMINOPHEN/HYDROcodone 325 MG/5 MG TAB PO PRN ×3 (00:44→15:04)
[2016-11-04] MEDS: PANTOPRAZOLE SODIUM 40 MG VIAL IV PUSH SCH (06:07)
[2016-11-04] MEDS: SUCRALFATE 1 GM/10 ML CUP PO SCH ×2 (06:07→11:44)
[2016-11-04] MEDS: RESP: ALBUTEROL 2.5 MG/IPRATROPIUM 0.5 MG NEB (SCH) NEB ×2 (08:00→13:16)
--- NOTE | 2016-11-04 08:09 | HHI.PR ---
Addendum to Inpatient Note Addendum Reason: Additional Documentation Additional Information I was asked to see Mrs. Neil to discuss the role of adjuvant systemic therapy versus clinical trials for risk reduction of recurrence of squamous cell carcinoma of the lung. Mrs. Neil's medical records were reviewed, including pathology report, operative report and preoperative imaging studies. 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 Status post R0 surgical resection T2 N1 M0 disease. Attempted to obtain a history of physical from her however she continue to dose in and out of sleep during the interview. It became clear she was unable to speak to me fully regarding the risks and benefits of adjuvant chemotherapy. I therefore recommended we meet in the outpatient setting in the upcoming weeks to talk about a clinical trial versus adjuvant systemic therapy as per standard of care. I have faxed over her demographics to my new patient referral office. This consult has been initiated. Neel Duron MD November 04, 2016 08:09
[2016-11-04] MEDS: PRAVASTATIN SOD 40 MG TAB PO SCH (08:36)
[2016-11-04] MEDS: ENALAPRIL MALEATE 10 MG TAB PO SCH (08:36)
[2016-11-04] MEDS: GABAPENTIN 300 MG CAP PO SCH (08:36)
[2016-11-04] MEDS: SERTRALINE HCL 50 MG TAB PO SCH (08:37)
[2016-11-04] MEDS: MULTIVITAMINS/MINERALS THERAPEUTIC TAB PO SCH (08:37)
[2016-11-04] MEDS: VERAPAMIL HCL 180 MG SUSTAINED RELEASE TAB PO SCH (08:37)
[2016-11-04] MEDS: MAGNESIUM HYDROXIDE SUSP 30 ML CUP PO SCH (08:38)
[2016-11-04] MEDS: HYDROCHLOROTHIAZIDE 12.5 MG CAP PO SCH (08:38)
[2016-11-04] MEDS: POLYETHYLENE GLYCOL 17 GM PKG PO SCH (08:38)
[2016-11-04] MEDS: SODIUM CHLORIDE 0.9% FLUSH 10 ML FLUSH IV FLUSH SCH (08:38)
[2016-11-04] MEDS: DOCUSATE SODIUM 100 MG CAP PO SCH (08:38)
--- NOTE | 2016-11-04 09:43 | RADRPT ---
EXAM DATE/TIME: 11/04/2016 09:14 [place] COMPARISON: CHEST SINGLE AP, November 02, 2016, 5:25. INDICATIONS : Shortness of breath; evaluate left pleural effusion. MEDICAL HISTORY : Carcinoma, lung. Rheumatoid arthritis SURGICAL HISTORY : Hysterectomy. Cholecystectomy. Lobectomy. thoracotomy ENCOUNTER: Subsequent ACUITY: 1 week PAIN SCORE: 0/10 LOCATION: Bilateral chest FINDINGS: A single view of the chest demonstrates cardiomegaly with pulmonary vascular congestion and left basi lar air space disease. Cardiomegaly. Small left pleural effusion. Osseous structures are intact. CONCLUSION: 1. Small left pleural effusion and left basilar airspace disease. Pleural effusion has decreased in p rominence from previous study. 2. Cardiomegaly. Taj Adam MD on November 04, 2016 at 9:39 Board Certified Radiologist. This report was verified electronically.
[2016-11-04] MEDS ORDERED: OXYGENTANK NAS.CANULA (10:47)
--- NOTE | 2016-11-04 12:11 | HHI.DS ---
Discharge Summary Admission Date Oct 28, 2016 at 05:26 Discharge Date: November 04, 2016 Admitting Diagnosis / left lung mass (1) Lung cancer Diagnosis: Principal (2) left lower lobe lung mass Diagnosis: Secondary (3) Anxiety Diagnosis: Principal (4) Hypertension Diagnosis: Principal (5) S/P thoracotomy Diagnosis: Secondary (6) COPD (chronic obstructive pulmonary disease) Diagnosis: Principal Procedures 1. Attempted Robotic Left Lower Lobectomy 10/28 2. Conversion to Left Muscle-sparing Posterolateral Thoracotomy 3. Repair of Pulmonary Artery 4. Mediastinal Lymph Node Dissection. 5. Intercostal Nerve Block . Brief History 71/ female hx of left lower lobe mass/ squamous cell ca PMH: depression, anxiety CVA minimal residual weakness surgery: .10/28 Attempted Robotic Left Lower Lobectomy, Conversion to Left Muscle-sparing Posterolateral Thoracotomy, Repair of Pulmonary Artery , Mediastinal Lymph Node Dissection. 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 Small left pleural effusion and left basilar airspace disease. Pleural effusion has decreased in prominence from previous study. 2. Cardiomegaly. Taj Adam MD Abdomen X-Ray 10/31/16 0000 Signed Impressions: Service Date/Time: October 17:03 - CONCLUSION: Mildly nonspecific, nonobstructive bowel gas pattern. Aidan Leal MD PE at Discharge GENERAL: SKIN: Warm and dry.incision intact and well approximated left chest wall , dressing to chest tube certified composites technician: Normocephalic. EYES: No scleral icterus. No injection or drainage. NECK: Supple, trachea midline. No JVD or lymphadenopathy. CARDIOVASCULAR: Regular rate and rhythm without murmurs, gallops, or rubs. RESPIRATORY: Breath sounds diminished left lower lobe . No accessory muscle use. GASTROINTESTINAL: Abdomen soft, non-tender, nondistended. MUSCULOSKELETAL: No cyanosis, or edema. BACK: Nontender without obvious deformity. No CVA tenderness. Hospital Course 10/29 had some confusion last pm, now improved, DIRECTOR QUALITY ASSURANCE DC anxious , on nasal cannula po pain control OOB ambulate , chest tube drained 112cc/ 12 hrs transfer to stepdown unit 10/30 chest drained 220cc/ 12 hrs, additional 100cc sero sang drainage since this am remains on 02 at 3 liters encourage ambulation, consult for pt home meds resumed for hypertension gentle diuresis 10/31 pt had episode of epigastric pain after eating, became SOB, changed to venti mask , 2/ sat 88% improved to 93% "states she has been having difficulty and pain epigastric area since her surgery will check ECG, consult speech therapy and GI for dysphagia has small timy left apical ptx, no air leak noted eval for chest tube removal 11/01 chest tube removed without difficulty still on 4 liters , wean as tolerated, check walk test in am / may need home 02 appreciate GI input, still has some discomfort with swallowing, slight improvement no BM , additional GI motility meds added Path report discussed with pt / consult oncology 11/03 Doing better D/C home in am 11/04 doing better, anxious to go home will need 02 at home will dc home today to f/u with Oncology Dr Duron / 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 Status post R0 surgical resection T2 N1 M0 disease. Pt Condition on Discharge: Good Discharge Disposition: Disch w/ Home Health Serv Discharge Instructions DIET: Follow Instructions for: Heart Healthy Diet Speech Therapy-Diet Recommenda: Regular Activities you can perform: Full Weight Bearing, Shower Only-No Bath Activities to avoid: Weight Bearing, Strenuous Activity, Driving Additional Activity Instructio: no lifting > 8 lbs or gallon of milk Follow up Referrals: Appointment for Follow Up with Radha Brown MD Appointment for Follow Up with Osvaldo Riley MD Appointment for Follow Up with Jessica Raines MD Gastroenterology @ [facility] with Isreal Enriquez MD Appt is scheduled for [place] location, at [address] [facility] [address] Oncology with Neel Duron MD New Medications: Oxygen tank (Oxygen tank) 1 Ea Tank 2 LITER NADYA.CANULA CONTINUOUS Oxygen Concentrator Portable Gaseous 2 L/min via Nasal Cannula Continuous For 99 months HYPOXEMIA PREVENTION #3 CYLINDER Sucralfate Liq (Sucralfate Liq) 1 Gm/10 Ml Wendy 1 GM PO ACHS gerd #1200 ML Continued Medications: Calcium Carbonate-Cholecalciferol (Calcium 600 with Vitamin D) 600-400 mg-Unit Tab 1 TAB PO DAILY Calcium Supplement Ref 0 TAB Enalapril (Enalapril) 10 Mg Tab 10 MG PO BID #60 Ref 0 TAB Folic Acid (Folate) 1 Mg Tab 1 MG PO S,M,W,TH,FR,SA Nutritional Supplement Ref 0 TAB Gabapentin (Gabapentin) 600 Mg Tab 600 MG PO BID #60 Ref 0 TAB Hydrochlorothiazide (Hydrochlorothiazide) 12.5 Mg Tab 12.5 MG PO DAILY #30 Ref 0 TAB Hyoscyamine Sulfate (Nulev) 0.125 Mg Tab 1 TAB PO DAILY PRN PAIN SCALE 1 TO 10 Melatonin (Melatonin) 10 Mg Tab 10 MG PO HS PRN SLEEP Ref 0 TAB Methotrexate (Methotrexate) 2.5 Mg Tab 2.5 MG PO FRIDAY Ref 0 TAB Multiple Vitamins W/ Minerals (Vision Plus) 1 Cap 1 CAP PO DAILY Nutritional Supplement Ref 0 CAP Omeprazole (Omeprazole) 20 Mg Tab 20 MG PO DAILY #30 Ref 0 TAB Pravastatin (Pravastatin) 40 Mg Tab 40 MG PO DAILY Cholesterol Management #30 Ref 0 TAB Sertraline (Zoloft) 100 Mg Tab 100 MG PO DAILY #30 Ref 0 TAB Verapamil SR (Verapamil SR) 180 Mg Tab 180 MG PO BID #60 Ref 0 TAB Discontinued Medications: Oxycodone-Acetaminophen (Percocet) 5-325 mg Tab 1 TAB PO BID PRN PAIN Ref 0 TAB Elzbieta Butt November 04, 2016 12:11
--- NOTE | 2016-11-04 12:20 | HHI.GIFU ---
Subjective Remarks Pt seated on edge of bed, in civilian clothes, asking to go home. She denies difficulty swallowing or abdominal pain, has had none in 3 days. She is eating with no issues. NO n/v. Objective Vitals I&O Vital Signs Date Time Temp Pulse Resp B/P Pulse Ox O2 Delivery O2 Flow Rate FiO2 11/04/16 11:00 86 11/04/16 11:00 97 Nasal Cannula 3.00 11/04/16 11:00 97.7 75 20 114/46 92 11/04/16 10:00 68 11/04/16 09:35 18 11/04/16 09:00 70 11/04/16 08:02 98 3.00 11/04/16 08:00 69 11/04/16 07:00 66 11/04/16 07:00 97 Nasal Cannula 3.00 11/04/16 07:00 97.7 71 20 128/66 97 11/04/16 06:00 72 11/04/16 05:01 72 11/04/16 04:00 98.2 73 20 129/58 97 11/04/16 04:00 73 11/04/16 03:32 94 Nasal Cannula 4.00 11/04/16 03:32 87 11/04/16 02:00 94 11/04/16 01:00 94 11/04/16 00:00 98.2 96 20 145/72 97 11/04/16 00:00 91 11/04/16 00:00 94 Nasal Cannula 4.00 11/03/16 23:00 90 11/03/16 22:00 81 11/03/16 21:00 90 11/03/16 20:20 95 Nasal Cannula 3.00 11/03/16 20:00 81 11/03/16 20:00 94 Nasal Cannula 4.00 11/03/16 20:00 98.6 79 20 138/60 97 11/03/16 19:00 79 11/03/16 18:00 78 11/03/16 17:00 76 11/03/16 16:16 95 Nasal Cannula 3.00 11/03/16 16:13 98.4 78 20 140/68 94 11/03/16 16:00 66 11/03/16 15:00 67 11/03/16 14:00 64 11/03/16 13:19 16 11/03/16 13:00 82 I/O 11/03/16 11/03/16 11/03/16 11/04/16 11/04/16 11/04/16 07:00 15:00 23:00 07:00 15:00 23:00 Intake Total 240 ml 960 ml 210 ml Output Total 550 ml 650 ml 600 ml Balance -310 ml 310 ml -390 ml Intake Oral 240 ml 960 ml 210 ml Output Urine Total 550 ml 650 ml 600 ml # Bowel Movements 0 Imaging Last Impressions Chest X-Ray 11/04/16 0000 Signed Impressions: Service Date/Time: Friday, November 04, 2016 09:14 - CONCLUSION: 1. Small left pleural effusion and left basilar airspace disease. Pleural effusion has decreased in prominence from previous study. 2. Cardiomegaly. Taj Adam MD Abdomen X-Ray 10/31/16 0000 Signed Impressions: Service Date/Time: October 17:03 - CONCLUSION: Mildly nonspecific, nonobstructive bowel gas pattern. Aidan Leal MD Physical Exam HEENT: EOMI. Normocephalic; atraumatic; no jaundice. CHEST: CTA CARDIAC: RRR ABDOMEN: Soft, nondistended, nontender; no hepatosplenomegaly; bowel sounds are present x 4 quadrants EXTREMITIES: Mild edema. 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 Assessment and Plan Plan ASSESSMENT: - Epigastric pain, nausea, bloating. Improved, denies abdominal pain. No N/V today. No discomfort in 3 days. Pt with long hx of GERD/Dyspepsia- has been controlled with omeprazole at home. She is getting Protonix 40mg at hs here. She states that since her surgery, she has been having increased epigastric pain, nausea, bloating associated with po intake. She last had an EGD/Colonoscopy 3 years ago. She denies any PUD. Of note, she had recent surgery and is on O2 4L via n/c and sats are 95%. She has sob with minimal exertion. Protonix to BID dosing, on Carafate. - Constipation. Improved. - Dysphagia, occasional solids getting caught in lower esophagus- very mild, chronic. Not currently having. PPI - GERD. PPI - Leukocytosis, WBC 15.7 (11/01) - LLL Mass. S/P attempted robotic left lower lobectomy with conversion to left muscle sparing posterolateral thoracotomy, repair of pulmonary artery, mediastinal lymph node dissection, intercostal nerve block for left lower lobe mass on 10/28/[address] Brown. Chest tube has been removed. Chest X-Ray 11/02/16--1. Left chest tube removed. No pneumothorax seen. There is modest worsening of left pleural effusion and parenchymal consolidation. 2. Mild right base atelectasis. She has shortness of breath with minimal exertion. - HTN, COPD, Allergic rhinitis, Hyperlipidemia, HTN, Insomnia, EVELINA, Rheumatoid arthritis. Per primary PLAN: - INES - Cont. Protonix - Cont. Carafate - Cont. Bowel regimen- miralax, senokot, colace - Okay to FU with GI as outpatient for EGD with dilation - Okay to d/c from GI standpoint Patient seen and examined by Dr. Figueroa and myself and this note is written on his behalf Christine Mendenhall [employer] TECHNICIAN November 04, 2016 12:20
== END 2016-11-04 15:18 | disposition home health service (06) | DRG 164 ==
LOC: HSDI 10-28 05:26 → HCVR 10-28 16:33 → HCIN 10-29 12:25
PROVIDERS: ADMIT Thoracic Surgery (Cardiothoracic Vascular Surgery); ATTEND Thoracic Surgery (Cardiothoracic Vascular Surgery)
PROC: 02QR0ZZ Repair Left Pulmonary Artery, Open Approach (ICD-10-PCS; 2016-10-28)
PROC: 07B74ZX Excision of Thorax Lymphatic, Percutaneous Endoscopic Approach, Diagnostic (ICD-10-PCS; 2016-10-28)
PROC: 3E0T3CZ (ICD-10-PCS; 2016-10-28)
PROC: 8E0W4CZ Robotic Assisted Procedure of Trunk Region, Percutaneous Endoscopic Approach (ICD-10-PCS; 2016-10-28)
PROC: 30233N1 Transfusion of Nonautologous Red Blood Cells into Peripheral Vein, Percutaneous Approach (ICD-10-PCS; 2016-10-28)
PROC: 0BTJ0ZZ Resection of Left Lower Lung Lobe, Open Approach (ICD-10-PCS; principal; 2016-10-28 07:43)
DX: C34.32 Malignant neoplasm of lower lobe, left bronchus or lung (principal); C77.1 Secondary and unspecified malignant neoplasm of intrathoracic lymph nodes; J44.9 Chronic obstructive pulmonary disease, unspecified; I97.42 Intraoperative hemorrhage and hematoma of a circulatory system organ or structure complicating other procedure; M06.9 Rheumatoid arthritis, unspecified; I10 Essential (primary) hypertension; F41.9 Anxiety disorder, unspecified; R10.13 Epigastric pain; K21.9 Gastro-esophageal reflux disease without esophagitis; K59.00 Constipation, unspecified; J30.9 Allergic rhinitis, unspecified; E78.5 Hyperlipidemia, unspecified; G47.33 Obstructive sleep apnea (adult) (pediatric); R13.10 Dysphagia, unspecified; D72.829 Elevated white blood cell count, unspecified; R41.0 Disorientation, unspecified; R09.02 Hypoxemia; Z86.73 Personal history of transient ischemic attack (TIA), and cerebral infarction without residual deficits; Z87.891 Personal history of nicotine dependence; Z88.5 Allergy status to narcotic agent; Z88.8 Allergy status to other drugs, medicaments and biological substances; Z88.6 Allergy status to analgesic agent
CPT/HCPCS: 36430; 71010; 74000; 76937; 80048; 82805; 83735; 85007; 85025; 85027; 86850; 86900; 86901; 86920; 88305; 88307; 88309; 88331; 93005; 94150; 94640; 94664; 94667; 94668; C9113; C9290; J0131; J0690; J1100; J1644; J1885; J1940; J2250; J2270; J2370; J2405; J2710; J3010; J3475; J7120; J7613; P9016

== ENCOUNTER → 2016-10-22 | Outpatient (CLI) | payer MEDICARE, OTHER ==
[~2016-10-22] MED LIST changes: +CALC1TAB87 PO; +OXYGENTANK NAS.CANULA; +SUCR1S PO; +VISICAP PO
[2016-10-22 15:02] LABS: HEMATOCRIT 37.8 % (35.0-46.0); MEAN CELL VOLUME 88.3 FL (80.0-100.0); MEAN CORPUSCULAR HEMOGLOBIN 29.1 PG (27.0-34.0); PLATELET COUNT 265 TH/MM3 (150-450); RED BLOOD COUNT 4.28 MIL/MM3 (4.00-5.30); REVIEW FLAG FINAL; WHITE BLOOD COUNT 8.3 TH/MM3 (4.0-11.0)
[2016-10-22 15:03] LABS: BACTERIA, URINE RARE /hpf; BLOOD, URINE SMALL (NEG); COMMENT (UR) CULT NOT INDICATED; CULTURE IF INDICATED CULT NOT INDICATED; GLUCOSE,URINE NEG (NEG); KETONE, URINE NEG (NEG); MUCUS URINE FEW /lpf (OCC); NITRITE,URINE NEG (NEG); SQUAMOUS EPITHELIAL CELL URINE <1 /hpf (0-5); URINE COLOR YELLOW (YELLW/STRAW)
[2016-10-22 15:07] LABS: APTT (PATIENT) 25.9 SEC (24.3-30.1); PROTHROMBIN TIME - PATIENT 10.6 SEC (9.8-11.6)
[2016-10-22 15:16] LABS: BICARBONATE 35.3 MEQ/L (21.0-32.0); POTASSIUM 3.7 MEQ/L (3.5-5.1)
--- NOTE | 2016-10-22 23:31 | EKG ---
Date Performed: 10/22/2016 Time Performed: 14:30:28 PTAGE: 71 years EKG: SINUS BRADYCARDIA WITH SINUS ARRHYTHMIA POSSIBLE LEFT ATRIAL ENLARGEMENT POSSIBLE LEFT VENT RICULAR HYPERTROPHY NONSPECIFIC T-WAVE ABNORMALITY ABNORMAL ECG PREVIOUS TRACING : 09/20/2016 06.13 Compared to prior tracing no significant change DOCTOR: Porfirio Watson Interpretating Date/Time 10/22/2016 23:30:37
== END ==
LOC: CPRE 13:28
PROVIDERS: ATTEND Thoracic Surgery (Cardiothoracic Vascular Surgery)
DX: Z01.810 Encounter for preprocedural cardiovascular examination (principal); Z01.812 Encounter for preprocedural laboratory examination; R91.8 Other nonspecific abnormal finding of lung field; R00.1 Bradycardia, unspecified
CPT/HCPCS: 36415; 80048; 81001; 85027; 85610; 85730; 93005